=== PATIENT | male | born 1950 | race Caucasian/White ===

== ENCOUNTER 2020-06-04 11:23 | Outpatient (CLI) | payer MEDICARE, OTHER, SELFPAY ==
--- NOTE | ~2020-06-04 | US_ITS ---
EXAMINATION: US venous doppler [facility] DATE: 06/04/2020 12:17 INDICATION: Lower limb swelling. TECHNIQUE: Grayscale ultrasound images without and with compression and Doppler ultrasound images of the bilateral lower extremity veins were obtained. COMPARISON: None. FINDINGS: The visualized portions of right common femoral vein, profunda (deep) femoral vein, femoral vein, pop liteal vein, posterior tibial veins, peroneal veins, gastrocnemius vein and greater saphenous vein ou tflow are patent. 4.2 x 1.4 x 3.1 cm complex fluid collection in the deep subcutaneous tissues along the anterior right tibia which in the setting of recent trauma is most consistent with a hematoma. The visualized portions of left common femoral vein, profunda femoral vein, femoral vein, popliteal v ein, posterior tibial veins, peroneal veins, gastrocnemius vein and greater saphenous vein outflow ar e patent. IMPRESSION: 1. No deep venous thrombosis in either lower limb. 2. 4.2 x 1.4 x 3.1 cm complex subcutaneous fluid collection along the anterior right tibia, most like ly a hematoma given the history of recent trauma at this location. Reviewed, dictated and finalized at location A. IMPRESSION: 1. No deep venous thrombosis in either lower limb. 2. 4.2 x 1.4 x 3.1 cm complex subcutaneous fluid collection along the anterior right tibia, most likely a hematoma given the history of recent trauma at this location.
== END 2020-06-04 11:24 | disposition home or self-care (01) ==
PROVIDERS: PCP Family Medicine; Visit Provider Physician Assistant Medical
DX: M79.89 Other specified soft tissue disorders (principal)
CPT/HCPCS: 93970

== ENCOUNTER → 2021-06-19 11:22 | Outpatient (CLI) | payer MEDICARE, OTHER, SELFPAY ==
--- NOTE | ~2021-06-19 | XR_ITS ---
XR chest 2V DATE: 06/19/2021 12:37 INDICATION: Wheezing TECHNIQUE: PA and lateral views COMPARISON: 11/24/2017 two-view chest FINDINGS: There is bilateral hyperinflation suggesting COPD. Normal heart size. No hilar or mediastinal enlargement. No pulmonary infiltrate or consolidation, ple ural effusion or pulmonary vascular congestion or pneumothorax is detected. Osteopenia. Degenerative spurring of the thoracic spine. IMPRESSION: No active disease or significant new change since 11/24/2017 Reviewed, dictated and finalized at location B.
== END ==
DX: R06.2 Wheezing (principal)
CPT/HCPCS: 71046

== ENCOUNTER 2021-08-11 12:34 | Emergency (ER) | payer MEDICARE, OTHER, SELFPAY ==
--- NOTE | 2021-08-11 12:39 | ED.BACK ---
HPI - Back Pain/Injury General Chief Complaint: Back Pain/Injury Stated Complaint: lower back pain Source: patient, RN notes reviewed and old records reviewed Mode of arrival: ambulatory Limitations: no limitations History of Present Illness HPI Narrative: 70-year-old male presents to the [facility] with complaints of back pain for 6 months, worse over the last couple of days. Has been using a heating pad and pillows with minimal to no relief. Worse over the last couple of days. Patient does have a history of high blood pressure. Discussed with him he needs to follow-up with his primary care provider for evaluation and may be increase his blood pressure medication. Patient reports that he is compliant. Denies any loss or retention of bowel or bladder. No numbness or tingling in extremities. Walks with a normal gait. Worse with movement, changing of positions and when he is trying to sleep MD elicited complaint: back pain Related Data Home Medications Medication Instructions Recorded Confirmed albuterol sulfate 90 mcg/actuation 1 puff INHALATION Q4H PRN 09/19/19 04/29/21 aerosol inhaler fluticasone fur. 200 mcg-umeclid INHALATION 01/23/21 04/29/21 62.5 mcg-vilant 25 mcg inhalat.powder indomethacin 50 mg capsule 50 mg PO ONCE cap 01/23/21 04/29/21 [id number] INHALATION 08/11/21 [Trelegy Ellipta] Allergies Allergy/AdvReac Type Severity Reaction Status Date / Time salicylates Allergy Mild Unknown Verified 04/26/21 09:02 aspirin Allergy Unknown Unknown Verified 04/26/21 09:02 lisinopril AdvReac Mild Cough Verified 04/26/21 09:02 Review of Systems Review of Systems: All systems reviewed & are unremarkable except as noted in HPI and below Constitutional: Constitutional: Reports no additional constitutional complaints, Denies chills and Denies fever(s) Eyes: Eyes: Reports no additional eye complaints ENT: Reports system reviewed and no additional complaints, except as documented Cardiovascular: Cardiovascular: Reports no additional cardiovascular complaints Respiratory: Respiratory: Reports no additional respiratory complaints Gastrointestinal: Gastrointestinal: Reports no additional gastrointestinal complaints, Denies abdominal pain, Denies nausea and Denies vomiting Musculoskeletal: Musculoskeletal: Reports as per HPI and Reports back pain Integumentary/Breasts: Skin/Breast: Reports system reviewed and no additional complaints, except as docu Neurologic: Reports system reviewed and no additional complaints, except as documented Psychiatric: Psychiatric: Reports no additional psychiatric complaints Allergic/Immunologic: Allergic/Immunologic: Reports no additional allergic/immunologic complaints PMFSH Past Medical History Medical History (Updated 08/11/21 @ 18:57 by Waleska Swain) Chronic obstructive pulmonary disease Essential hypertension Hyperlipidemia Unspecified asthma with (acute) exacerbation Surgical History Surgical History (Updated 08/11/21 @ 18:58 by Waleska Swain) No significant past surgical history Family History Family History Father Family history of heart disease in male family member before age 55 Sibling Family history of heart disease in male family member before age 55 Social History Social History Smoking status: Former smoker Alcohol intake: never Substance use: never Substance use type: does not use Comments At the time of my signature, I reviewed and agree with the nursing past medical, surgical, social, and family history. There is no relevant family history pertinent to the patient complaint. Exam Const: General: healthy appearing, no acute distress and alert Nutritional Appearance: well nourished Orientation/consciousness: patient oriented x3 Limitations: no limitations HENMT: Head: normal to inspection Ears: external ears
[2021-08-11 12:50] VITALS: BP 175/73; PULSE 70; RESP 18; TEMP 36.1; O2SAT 98
== END 2021-08-11 12:59 | disposition home or self-care (01) ==
PROVIDERS: Emergency Provider Nurse Practitioner; PCP Family Medicine
DX: M54.50 Low back pain, unspecified (principal); J44.9 Chronic obstructive pulmonary disease, unspecified; I10 Essential (primary) hypertension; E78.5 Hyperlipidemia, unspecified
CPT/HCPCS: 99213; G0463

== ENCOUNTER 2021-08-14 09:09 | Emergency (ER) | payer MEDICARE, OTHER, SELFPAY ==
--- NOTE | ~2021-08-14 | CT_ITS ---
EXAMINATION: CT lumbar spine wo con DATE: 08/14/2021 09:41 INDICATION: Right-sided low back pain. TECHNIQUE: Computed tomography (CT) of the lumbar spine was performed without intravenous contrast. A utomated exposure control and iterative reconstruction technique were employed. The dose-length produ ct was 760.37 mGy-cm. COMPARISON: CT abdomen and pelvis 11/23/2012 FINDINGS: Partially visualized are cysts in the kidneys measuring up to 6.1 cm on the right. There is 4 degrees levocurvature of lumbar spine. There is 3 mm retrolisthesis of L3 on L4. Vertebral body he ights are normal. There is mildly decreased disc height at L1-L2, moderately decreased disc height at L2-L3 and L3-L4, mildly decreased disc height at L4-L5, and severely decreased disc height at L5-S1 with endplate remodeling. There is a benign bone island in left ilium. The following disc levels are specifically discussed: L1-L2: The disc is bulging. There is mild bilateral facet joint osteoarthritis. There is mild right n eural foraminal stenosis. There is mild central canal stenosis. L2-L3: The disc is bulging. There is severe right and moderate left facet joint osteoarthritis. There is mild bilateral neural foraminal stenosis. There is mild central canal stenosis. L3-L4: The disc is bulging. There is mild bilateral facet joint osteoarthritis. There is moderate raudel ateral neural foraminal stenosis. There is mild central canal stenosis. L4-L5: The disc is bulging. There is mild bilateral facet joint osteoarthritis. There is moderate raudel ateral neural foraminal stenosis. There is mild central canal stenosis. L5-S1: The disc is bulging. There is moderate right and severe left facet joint osteoarthritis. There is moderate bilateral neural foraminal stenosis. There is mild central canal stenosis. IMPRESSION: 1. Severe lumbar spondylosis. Reviewed, dictated and finalized at location B. [employer]
[2021-08-14 09:19] VITALS: BP 170/80; PULSE 78; RESP 18; TEMP 36.6; O2SAT 98
--- NOTE | 2021-08-14 10:17 | ED.BACK ---
HPI - Back Pain/Injury General Chief Complaint: Back Pain/Injury Stated Complaint: back pain Time Seen by Provider: 08/14/21 09:18 Source: RN notes reviewed History of Present Illness HPI Narrative: Patient presents emergency department from home for right lower back pain. Patient states that for the past 8 months he has been having pain in his right lower back the pain radiates from his buttocks down into his right leg and is worse with movement and activity he states that he had been at the urgent care recently started on baclofen and a Medrol Dosepak which he is taking he states this morning an episode where the pain rating to his groin into his right testicle which was new for him he states that pain has resolved at this time he denies any fevers or chills abdominal pain nausea or vomiting numbness or tingling in the extremities bowel or bladder incontinence or any other symptoms states he is followed by Dr. Lindsey Related Data Home Medications Medication Instructions Recorded Confirmed albuterol sulfate 90 mcg/actuation 1 puff INHALATION Q4H PRN 09/19/19 04/29/21 aerosol inhaler fluticasone fur. 200 mcg-umeclid INHALATION 01/23/21 04/29/21 62.5 mcg-vilant 25 mcg inhalat.powder indomethacin 50 mg capsule 50 mg PO ONCE cap 01/23/21 04/29/21 [id number] INHALATION 08/11/21 [Trelegy Ellipta] Allergies Allergy/AdvReac Type Severity Reaction Status Date / Time aspirin Allergy Intermediate Swelling Verified 08/14/21 09:26 salicylates Allergy Intermediate Swelling Verified 08/14/21 09:26 lisinopril AdvReac Mild Cough Verified 04/26/21 09:02 Review of Systems Review of Systems: Gen.: Denies fevers or chills ENT: Denies congestion Respiratory: Denies shortness of breath or cough CV: Denies chest pain or palpitations GI: Denies abdominal pain nausea, emesis or diarrhea denies burning, urgency, frequency or hematuria Musculoskeletal: See HPI Neuro: Denies numbness, tingling, weakness or focal weakness Skin: Denies rash Except as documented, all other systems reviewed and negative PMFSH Past Medical History Medical History Chronic obstructive pulmonary disease Essential hypertension Hyperlipidemia Unspecified asthma with (acute) exacerbation Surgical History Surgical History (Updated 08/11/21 @ 18:58 by Waleska Swain) No significant past surgical history Family History Family History Father Family history of heart disease in male family member before age 55 Sibling Family history of heart disease in male family member before age 55 Social History Social History Smoking status: Former smoker Alcohol intake: never Substance use: never Substance use type: does not use Exam Narrative: APPEARANCE: No acute distress, nontoxic, resting in bed Eyes: EOMI HEENT: Normocephalic, atraumatic, CV: Regular rate and rhythm without murmur RESPIRATORY: No respiratory distress. Clear to auscultation bilaterally. Abdomen: Soft and nontender, no rebound or guarding : Normal external exam no scrotal swelling or erythema bilateral testicles are nontender to palpation no hernias palpated MUSCULOSKELETAl: Moves all extremities, no clubbing cyanosis or edema Back: No midline lumbar tenderness to palpation or step-off, tender to palpation over right piriformis region NEURO: Awake and alert. Following commands, speech normal, no focal deficits, muscle strength 5 out of 5 bilateral lower extremities, bilateral patellar reflex 2+ SKIN:: Warm, dry. Normal Color no rash or lesions Course Course Emergency Course: Discussed with Fausto for Dr. Marrero presentation work-up agrees with plan for discharge to follow-up as an outpatient Discussed with patient results of workup and diagnosis. Discussed need for follow-up with primary care, p
[2021-08-14 10:36] VITALS: BP 142/63; PULSE 68; RESP 18; O2SAT 96
== END 2021-08-14 10:38 | disposition home or self-care (01) ==
PROVIDERS: Emergency Provider Emergency Medicine; PCP Family Medicine
DX: M54.41 Lumbago with sciatica, right side (principal); J44.9 Chronic obstructive pulmonary disease, unspecified; I10 Essential (primary) hypertension; E78.5 Hyperlipidemia, unspecified; Z87.891 Personal history of nicotine dependence; M47.816 Spondylosis without myelopathy or radiculopathy, lumbar region
CPT/HCPCS: 72131; 99284

== ENCOUNTER → 2022-01-30 09:07 | Outpatient (CLI) | payer MEDICARE, OTHER, SELFPAY ==
--- NOTE | ~2022-01-30 | XR_ITS ---
XR chest 2V DATE: 01/30/2022 09:19 INDICATION: Severe persistent asthma TECHNIQUE: 2 views COMPARISON: 06/19/2021 PA and lateral chest 12/21/2014 PA and lateral chest FINDINGS: Moderate bilateral hyperinflation with relative flattening of the diaphragm is again noted. 11 mm nodular density overlies the lateral left lower lung on PA view. CT thorax is recommended to ex clude pulmonary mass lesion. No pleural effusion or pulmonary vascular congestion or pneumothorax. Central pulmonary arteries appe ar prominent, suggesting possible pulmonary hypertension. Heart size is within normal limits. Is aortic arch calcification. Mild levoscoliosis of the upper thoracic spine. Mild degenerative spurring of the thoracic spine. No pulmonary infiltrate or consolidation, pleural effusion or pulmonary vascular congestion or pneumotho rax is detected. IMPRESSION: Bilateral hyperinflation consistent with obstructive airways disease. Possible pulmonary hypertension 11 mm nodular density overlying left lower lateral lung on PA view; CT thorax is recommended Reviewed, dictated and finalized at location B. IMPRESSION: Bilateral hyperinflation consistent with obstructive airways diseas e. Possible pulmonary hypertension 11 mm nodular density overlying left lower lateral lung on PA view; CT thorax i s recommended
== END ==
PROVIDERS: PCP Family Medicine; Visit Provider Nurse Practitioner Family
DX: J45.50 Severe persistent asthma, uncomplicated (principal); R91.8 Other nonspecific abnormal finding of lung field
CPT/HCPCS: 71046

== ENCOUNTER 2023-11-24 12:19 | Inpatient (IN) | payer MEDICARE, OTHER, SELFPAY ==
[2023-11-24] VITALS (7 sets, daily range): BP systolic 132–151; BP diastolic 59–76; PULSE 88–112; RESP 18–20; TEMP 37.3–37.4; O2SAT 93–100; BMI 27.2
--- NOTE | ~2023-11-24 | CT_ITS ---
EXAMINATION: CTA chest PE protocol DATE: 11/24/2023 19:19 INDICATION: cough, dyspnea TECHNIQUE: Computed tomography angiography (CTA) of the chest was performed with 100 mL Omnipaque-350 intravenous contrast timed to evaluate the pulmonary arteries. Coronal maximum intensity projection 3D-reconstructions were created by the technologist. The dose-length product (DLP) was 413.56 mGy-cm. Automated exposure control and iterative reconstruction technique were employed. COMPARISON: None. FINDINGS: Lung parenchyma and airways: Scattered areas of centrilobular nodular consolidative and groundglass o pacities, tree-in-bud opacities, and focal consolidation affecting all lobes, most prominent in the r ight upper and lower lobes. Focus of rounded atelectasis in the peripheral anterior left lower lobe. Patent airways. Pleura: Unremarkable. Thoracic inlet, axillae and chest wall: Minimal symmetric bilateral gynecomastia.. Thoracic aorta: Mild arch calcification. No dissection or aneurysm. Mediastinum: Normal. Heart and pericardium: Normal. Coronary artery calcifications: Mild. Upper abdomen: No significant finding. Bones: No acute osseous finding. Pulmonary arteries: Study quality: Adequate. No pulmonary emboli detected. IMPRESSION: No CT evidence of acute pulmonary embolus. Scattered pulmonary opacities as can be seen with atypical infection, airways disease, and aspiration . Hypersensitivity pneumonitis or ABPA considered less likely. Reviewed, dictated and finalized at location K. CORRECTIONAL IMPRESSION: No CT evidence of acute pulmonary embolus. Scattered pulmonary opacities as can be seen with atypical infection, airways d isease, and aspiration. Hypersensitivity pneumonitis or ABPA considered less demetra khan.
--- NOTE | ~2023-11-24 | XR_ITS ---
EXAMINATION: XR chest 2V DATE: 11/24/2023 12:54 INDICATION: Shortness of breath. Cough. TECHNIQUE: Frontal and lateral views of the chest were obtained. COMPARISON: Chest 2 views 01/30/2022 FINDINGS: There are mild airspace opacities in the mid and lower lung zones. No pleural effusion. The heart size is normal. There are surgical clips in the abdomen. IMPRESSION: 1. Mild airspace opacities in the mid and lower lung zones, consistent with atelectasis/scarring vers us pneumonia. Reviewed, dictated and finalized at location E. IC ADDRESS SYSTEM OPERATOR IMPRESSION: 1. Mild airspace opacities in the mid and lower lung zones, consistent with ate lectasis/scarring versus pneumonia.
--- NOTE | 2023-11-24 12:22 | ECG_ITS ---
Measurements Intervals [place] Rate: 106 P: 85 NM: 163 QRS: 73 QRSD: 88 T: 58 QT: 309 QTc: 411 Interpretive Statements SINUS TACHYCARDIA ABNORMAL ECG NO PREVIOUS ECG AVAILABLE FOR COMPARISON Electronically Signed On 11-24-2023 12:58:38 TAX MANAGER PUBLIC by Rosalio Rios D.O.
[2023-11-24 12:37] LABS: Basophils Percent Auto 0.2 % (0.2-1.2); Eosinophils Absolute Auto 0.1 K/mm3 (0-0.3); Eosinophils Percent Auto 0.3 % (0-4.4); Hematocrit 44.7 % (42.0-52.0); Hemoglobin 14.6 g/dL (14.0-18.0); Immature Granulocyte Absolute 0.08 K/mm3 (0.00-0.031); Immature Granulocyte Percent A 0.5 % (0-0.5); Lymphocytes Absolute Auto 2.32 K/mm3 (0.9-3.2); Lymphocytes Percent Auto 14.4 % (18.3-44.2); Mean Corpuscular HGB Conc 32.7 g/dl (32-36); Mean Corpuscular Hemoglobin 30.7 pg (26-34); Mean Corpuscular Volume 94.1 fl (80-100); Mean Platelet Volume 8.6 fl (7.4-10.4); Monocytes Absolute Auto 2.3 K/mm3 (0.1-0.6); Neutrophils Absolute Auto 11.4 K/mm3 (1.3-6.7); Neutrophils Percent Auto 70.6 % (45.5-73.1); Platelet Count Result 441 k/mm3 (150-375); Red Blood Count 4.75 M/mm3 (4.6-6.20); Red Cell Distribution Width 14.1 % (11.5-14.5); White Blood Count 16.1 K/mm3 (4.5-10.0)
[2023-11-24 12:50] LABS: Alanine Aminotransferase 25 U/L (6-50); Albumin Level 3.9 g/dL (3.5-5.1); Alkaline Phosphatase 96 U/L (38-126); Anion Gap 5 mmol/L (8-16); Aspartate Amino Transferase 30 U/L (17-59); Bilirubin,Total 0.9 mg/dL (0.2-1.3); Blood Urea Nitrogen 10 mg/dL (9-20); Carbon Dioxide 30 mmol/L (22-30); Chloride 96 mmol/L (98-107); Estimated CRCL calculation 72 ml/min; Estimated Glomerular Filt Rate > 60; Glucose 94 mg/dL (65-110); Potassium 4.4 mmol/L (3.4-5.0); Sodium 131 mmol/L (137-145)
--- NOTE | 2023-11-24 17:33 | ED.SOB ---
HPI - SOB/Dyspnea General Chief Complaint: Shortness of Breath/Dyspnea <Camila Webber PA-C - Last Filed: 11/24/23 20:11> Stated Complaint: shortness of breath <Camila Webber PA-C - Last Filed: 11/24/23 20:11> Time Seen by Provider: 11/24/23 16:59 <Camila Webber PA-C - Last Filed: 11/24/23 20:11> History of Present Illness HPI Narrative: 73-year-old male with history of COPD, asthma, hypertension, hyperlipidemia presents to emergency department for cough and shortness of breath x2 months. Patient states he saw his PCP for symptoms at the onset of symptoms was started on antibiotic for presumed pneumonia. States this did not help he followed up with PCP a month later. States he was started on another round of antibiotics and a Z-Moe without improvement. States last week he saw his correctional casework specialist at [facility] who gave the patient a round of antibiotics and steroids for 10 days. Patient states he took these without improvement. He called his correctional casework specialist office today who advised to go to the ER. Pt states he has had worsening shortness of breath and a productive cough with Katarzyna green mucus with since the onset of symptoms. Rate reports intermittent subjective fevers, diaphoresis and chills. He denies chest pain, vomiting, lower extremity edema, history of heart disease. States he quit smoking about 40 years ago. <Camila Webber PA-C - Last Filed: 11/24/23 20:11> Related Data Home Medications: Home Medications Medication Instructions Recorded Confirmed albuterol sulfate 90 mcg/actuation 1 puff inhalation Q4H PRN 09/19/19 11/24/23 aerosol inhaler (Ventolin HFA) Shortness Of Breath fluticasone fur. 200 mcg-umeclid 1 inh inhalation DAILY 08/10/23 11/24/23 62.5 mcg-vilant 25 mcg inhalat.powder (Trelegy Ellipta) atorvastatin 80 mg tablet 80 mg PO DAILY 11/24/23 11/24/23 <MELVIN Braun Last Filed: 11/24/23 20:11> Allergies/Adverse Reactions: Allergies Allergy/AdvReac Type Severity Reaction Status Date / Time aspirin Allergy Intermediate Swelling Verified 11/24/23 16:31 salicylates Allergy Intermediate Swelling Verified 11/24/23 16:31 lisinopril AdvReac Mild Cough Verified 11/24/23 16:31 codeine AdvReac Vomiting Verified 11/24/23 16:32 <Camila Webber PA-C - Last Filed: 11/24/23 20:11> Review of Systems Review of Systems: CONSTITUTIONAL: See HPI EYES: Denies visual changes, redness, or discharge. ENT: Denies rhinorrhea, congestion, sore throat, or otalgia. CARDIOVASCULAR: Denies chest pain, palpitations, or edema. RESPIRATORY: See HPI GASTROINTESTINAL: Denies abdominal pain, nausea, vomiting, or diarrhea. GENITOURINARY: Denies dysuria or hematuria. SKIN: Denies rash or itching. MUSCULOSKELETAL: Denies back pain, joint pain, or myalgia. NEUROLOGIC: Denies headache, numbness, or weakness. PSYCHIATRIC: Denies anxiety or depression. <Camila Webber PA-C - Last Filed: 11/24/23 20:11> [facility] Past Medical History Medical History: Medical History BMI 27.0-27.9,adult BMI 29.0-29.9,adult Chronic obstructive pulmonary disease Essential hypertension Hyperlipidemia Overweight with body mass index (BMI) of 28 to 28.9 in adult Screening for prostate cancer Unspecified asthma with (acute) exacerbation <Camila Webber PA-C - Last Filed: 11/24/23 20:11> Surgical History Surgical History: Surgical History H/O splenectomy No significant past surgical history <Camila Webber PA-C - Last Filed: 11/24/23 20:11> Family History Family History: Family History Father Family history of heart disease in male family member before age 55 Acute myocardial infarction Sibling Family history of heart disease in male family member before age
--- NOTE | 2023-11-24 17:38 | ECG_ITS ---
Measurements Intervals [place] Rate: 103 P: 83 AL: 150 QRS: 72 QRSD: 86 T: 63 QT: 319 QTc: 418 Interpretive Statements SINUS TACHYCARDIA BASELINE WANDER- I, II, III, AVF, V2-V3 BORDERLINE ECG COMPARED TO ECG 11/24/2023 12:26:07 NO SIGNIFICANT CHANGES Electronically Signed On 11-24-2023 19:42:07 PROCUREMENT PROFESSIONAL by Rosalio Rios D.O.
[2023-11-24] MEDS: IPRATROPIUM 0.5 MG/ALBUTEROL SULFATE 2.5 MG AMPUL.NEB 3 ML INHALATION ×3 (17:54)
[2023-11-24 18:09] LABS: Appearance Urine Clear (Clear); Bacteria Urine None Seen /hpf; Bilirubin Urine Negative (Negative); Color Urine Yellow (Yellow); Glucose Urine UA Negative (Negative); Ketones Urine Negative (Negative); Leukocyte Esterase Ur Negative LEU/UL (Negative); Nitrate Urine Negative (Negative); Non Pathogenic Casts 0-2; Protein Urine Negative (Negative); Specific Grav Ur 1.016 (1.001-1.035); Squamous Epithelial Cell Urine None seen /hpf (Few); WBC Urine 0-5 /hpf; pH Urine 7.5 (5.0-9.0)
[2023-11-24 18:12] LABS: Prothrombin Time 14.1 Seconds (11.1-14.7)
[2023-11-24 18:14] LABS: Partial Thromboplastin Time 31.8 SECONDS (22.3-36.8)
[2023-11-24 18:16] LABS: NT Pro B Type Natriuretic Pept 155 pg/mL (19.9-100); Troponin I < 0.012 ng/mL (0.000-0.034)
[2023-11-24 18:22] LABS: Add Urine Microscopic? YES
[2023-11-24] MEDS: SODIUM CHLORIDE 0.9% IV 1,000 ML 999 ML IV CONT ×2 (18:36→21:00)
[2023-11-24] MEDS: methylPREDNISolone SOD SUCC 125 MG VIAL IV PUSH (18:38)
--- NOTE | 2023-11-24 19:14 | PC.NURSE ---
Assumed care of pt. Bedside report from PAULINA Keenan. Pt in radiology at this time. Family updated.
--- NOTE | 2023-11-24 19:21 | PC.NURSE ---
Bedside report given to Stephanie RN, all questions answered
[2023-11-24 19:22] LABS: Influenza A QL RT-PCR Negative (Negative); Influenza B QL RT-PCR Negative (Negative); RSV RNA, RT-PCR Positive (Negative); SARS-CoV-2 RNA PCR Negative (Negative)
--- NOTE | 2023-11-24 20:07 | PM.IMHP ---
H&P: HPI History of Present Illness Date/Time: 11/24/23 20:07 Chief Complaint: sob Narrative: This is a 73-year-old male with past medical history significant for hypertension, chronic obstructive pulmonary disease/asthma, dyslipidemia. 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 Patient tested positive for RSV, tested negative for influenza type A influenza type B and COVID. EXAMINATION: XR chest 2V DATE: 11/24/2023 12:54 INDICATION: Shortness of breath. Cough. TECHNIQUE: Frontal and lateral views of the chest were obtained. COMPARISON: Chest 2 views 01/30/2022 FINDINGS: There are mild airspace opacities in the mid and lower lung zones. No pleural effusion. The heart size is normal. There are surgical clips in the abdomen. IMPRESSION: 1. Mild airspace opacities in the mid and lower lung zones, consistent with atelectasis/scarring versus pneumonia. EXAMINATION: CTA chest PE protocol DATE: 11/24/2023 19:19 INDICATION: cough, dyspnea TECHNIQUE: Computed tomography angiography (CTA) of the chest was performed with 100 mL Omnipaque-350 intravenous contrast timed to evaluate the pulmonary arteries. Coronal maximum intensity projection 3D-reconstructions were created by the technologist. The dose-length product (DLP) was 413.56 mGy-cm. Automated exposure control and iterative reconstruction technique were employed. COMPARISON: None. ? FINDINGS:? Lung parenchyma and airways: Scattered areas of centrilobular nodular consolidative and groundglass opacities, tree-in-bud opacities, and focal consolidation affecting all lobes, most prominent in the right upper and lower lobes. Focus of rounded atelectasis in the peripheral anterior left lower lobe. Patent airways. Pleura: Unremarkable. Thoracic inlet, axillae and chest wall: Minimal symmetric bilateral gynecomastia.. Thoracic aorta: Mild arch calcification. No dissection or aneurysm. Mediastinum: Normal. Heart and pericardium: Normal. Coronary artery calcifications: Mild. Upper abdomen: No significant finding. Bones: No acute osseous finding. Pulmonary arteries: Study quality: Adequate. No pulmonary emboli detected. IMPRESSION: No CT evidence of acute pulmonary embolus. Scattered pulmonary opacities as can be seen with atypical infection, airways disease, and aspiration. Hypersensitivity pneumonitis or ABPA considered less likely. Review of Systems Review of Systems: sob, productive cough, generalized weakness x 2 weeks Constitutional: Constitutional: Reports poor appetite and Reports weakness Eyes: Eyes: Denies change in vision ENT: Denies dysphagia and Denies odynophagia Cardiovascular: Cardiovascular: Denies chest pain Respiratory: Respiratory: Reports cough, Reports excessive phlegm production, Reports dyspnea and Reports wheezing Gastrointestinal: Gastrointestinal: Denies abdominal pain, Denies dyspepsia, Denies heartburn, Denies diarrhea, Denies nausea and Denies vomiting Genitourinary: Genitourinary: Denies dysuria Musculoskeletal: Musculoskeletal: Reports muscle weakness Integumentary/Breasts: Skin/Breast: Denies rash Neurologic: Denies focal weakness and Denies Sensory deficit (Neuro) Psychiatric: Psychiatric: Reports no additional psychiatric complaints and Reports as per HPI Endocrine: Endocrine: Denies cold intolerance, Denies heat intolerance, Denies polyphagia and Denies polydipsia Hematologic/Lymphatic: Hematologic/Lymphatic: Reports no additional hematologic/lymphatic complaints and Reports as per HPI Allergic/Immunologic: Allergic/Immunologic: Reports no additional allergic/immunologic complaints and Reports a
[2023-11-24] MEDS: AZITHROMYCIN 500 MG/NS 250 ML 500 MG/250 ML BAG 250 MG IVPB (21:57)
--- NOTE | 2023-11-24 22:00 | ADMGEN ---
This patient, Edgard Gallardo, was admitted to [facility] Surg Room 312-01. Patient/family oriented to hospital policies and general routines including ID bracelet, bed and alarms, visiting hours, pain management, procedures, bathroom and other care routines, personal items, smoking policy, room service/diet, and visiting hours. Information on how to activate the Rapid Response Team has been discussed. Patient/Family are encouraged to report perceived risks to care and to ask questions if they do not understand what they are told or what they should do.
[2023-11-24] MEDS: methylPREDNISolone SOD SUCC 125 MG VIAL 40 MG IV PUSH (23:50)
[2023-11-25] VITALS (10 sets, daily range): BP systolic 137–148; BP diastolic 60–75; PULSE 72–84; RESP 16–18; TEMP 36.4–36.9; O2SAT 91–94
[2023-11-25] MEDS: methylPREDNISolone SOD SUCC 125 MG VIAL 40 MG IV PUSH ×3 (06:54→16:53)
[2023-11-25] MEDS: FLUTICASONE/UMECLIDIN/VILANTER 200-62.5-25 MCG ELLIPTA 1 PUFF INHALATION (07:53)
[2023-11-25] MEDS: IPRATROPIUM 0.5 MG/ALBUTEROL SULFATE 2.5 MG AMPUL.NEB 3 ML INHALATION ×3 (08:01→20:15)
[2023-11-25] MEDS: amLODIPine BESYLATE 5 MG TABLET PO (08:39)
--- NOTE | 2023-11-25 14:53 | PM.IMPN ---
Progress Note: A&P Assessment and Plan (1) CAP (community acquired pneumonia): Qualifiers: Laterality: unspecified laterality Qualified Code(s): J18.9 - Pneumonia, unspecified organism Code(s): J18.9 - Pneumonia, unspecified organism Status: Acute Assessment and Plan: 11/25/23: Chest CTA showing scattered pulmonary opacities as can be seen with atypical infection, airway disease, aspiration Chest x-ray showing mild airspace opacities in the mid and lower lung zones consistent with pneumonia Patient started on Rocephin and azithromycin while in the ED He was given DuoNeb and Solu-Medrol in the ED Continue Solu-Medrol and DuoNebs Continue Rocephin and azithromycin Patient currently on room air and not in any acute respiratory distress (2) RSV (acute bronchiolitis due to respiratory syncytial virus): Code(s): J21.0 - Acute bronchiolitis due to respiratory syncytial virus Status: Chronic Assessment and Plan: 11/25/23: Respiratory panel positive for RSV See above plan of care (3) COPD exacerbation: Code(s): J44.1 - Chronic obstructive pulmonary disease with (acute) exacerbation Status: Acute Assessment and Plan: 11/25/23: Currently on and will continue Ventolin HFA and Trelegy (4) Essential hypertension: Code(s): I10 - Essential (primary) hypertension Status: Chronic Assessment and Plan: 11/25/23: Continue amlodipine (5) Hyperlipidemia: Qualifiers: Hyperlipidemia type: mixed hyperlipidemia Qualified Code(s): E78.2 - Mixed hyperlipidemia Code(s): E78.5 - Hyperlipidemia, unspecified Status: Chronic Assessment and Plan: 11/25/23: Continue atorvastatin Time Spent With Patient Time with patient: 25 - 35 minutes Subjective Date/time seen: 11/25/23 14:53 Interval history: This is a 73-year-old male who presented to the hospital with chief complaint of cough and shortness of breath x2 months. He was seen urgently by sand molder who put him on antibiotic and steroids for 10 days however he did not have much improvement went to his primary care who repeated his antibiotics. Workup in the hospital included a chest CTA which showed scattered pulmonary opacities which can be seen with atypical infection, no pulmonary embolism. Chest x-ray showed mild airspace opacities of the mid and lower lung zones consistent with pneumonia. Initial labs showed a white blood cell count of 16.1, sodium 131, chloride 96, proBNP 155, troponin negative. UA was performed and shown 11-20 urine RBCs otherwise negative. Respiratory panel was also done which was positive for RSV, influenza a and B and COVID were negative. Patient was given a DuoNeb, 125 mg IV push of Solu-Medrol, IV fluids, started on Rocephin and azithromycin. On examination today patient is alert oriented x3, lying in the bed. is at the bedside. He denies any fever, chills, headache, nausea, vomiting, diarrhea, abdominal pain, chest pain. He does endorse shortness of breath especially with exertion. Review of Systems Review of Systems: All systems reviewed & are unremarkable except as noted in HPI and below Constitutional: Constitutional: Reports as per HPI and Reports no additional constitutional complaints Eyes: Eyes: Reports as per HPI and Reports no additional eye complaints ENT: Reports system reviewed and no additional complaints, except as documented and Reports as per HPI Cardiovascular: Cardiovascular: Reports as per HPI and Reports no additional cardiovascular complaints Respiratory: Respiratory: Reports as per HPI and Reports no additional respiratory complaints Gastrointestinal: Gastrointestinal: Reports as per HPI and Reports no additional gastrointestinal complaints Genitourinary: Genitourinary: Reports no additional male genitourinary complaints and Reports as per HPI Musculoskeletal: Musculoskeletal: Reports no additional musculoskeletal
[2023-11-25] MEDS: AZITHROMYCIN 500 MG/NS 250 ML 500 MG/250 ML BAG 250 MG IVPB (21:06)
[2023-11-26] VITALS (13 sets, daily range): BP systolic 126–152; BP diastolic 63–70; PULSE 77–94; RESP 14–22; TEMP 36.2–37.1; O2SAT 92–96
[2023-11-26] MEDS: methylPREDNISolone SOD SUCC 125 MG VIAL 40 MG IV PUSH ×3 (00:20→11:16)
[2023-11-26] MEDS: IPRATROPIUM 0.5 MG/ALBUTEROL SULFATE 2.5 MG AMPUL.NEB 3 ML INHALATION ×4 (02:56→20:08)
[2023-11-26] MEDS: FLUTICASONE/UMECLIDIN/VILANTER 200-62.5-25 MCG ELLIPTA 1 PUFF INHALATION (07:28)
[2023-11-26] MEDS: ATORVASTATIN 40 MG TABLET 80 MG PO (08:35)
[2023-11-26] MEDS: amLODIPine BESYLATE 5 MG TABLET PO (08:35)
--- NOTE | 2023-11-26 13:08 | P.CDI_ITS ---
CDI Query Clarification Request Documentation in the medical record indicates that this patient has been diagnosed with pneumonia and RSV (positive swab 11/21/23). Please clarify in the progress notes, if known, if there is a cause and effect relationship between pneumonia and RSV: * There is a cause and effect relationship between pneumonia and RSV. * There is not a cause and effect relationship between pneumonia and RSV. * Unknown if there is a cause and effect relationship between pneumonia and RSV. <Rebekah Lu RN - Last Filed: 11/26/23 13:18> Clarified Diagnosis Clarified Diagnosis: Unknown if there is a cause and effect relationship between pneumonia and RSV <Shannon Lopez APRN - Last Filed: 11/26/23 13:52>
[2023-11-26 13:14] LABS: Hematocrit 43.5 % (42.0-52.0); Hemoglobin 14.6 g/dL (14.0-18.0); Mean Corpuscular HGB Conc 33.6 g/dl (32-36); Mean Corpuscular Hemoglobin 31.1 pg (26-34); Mean Corpuscular Volume 92.8 fl (80-100); Mean Platelet Volume 8.7 fl (7.4-10.4); Platelet Count Result 479 k/mm3 (150-375); Red Blood Count 4.69 M/mm3 (4.6-6.20); Red Cell Distribution Width 14.2 % (11.5-14.5); White Blood Count 29.9 K/mm3 (4.5-10.0)
[2023-11-26 13:25] LABS: Alanine Aminotransferase 23 U/L (6-50); Albumin Level 3.7 g/dL (3.5-5.1); Alkaline Phosphatase 73 U/L (38-126); Anion Gap 4 mmol/L (8-16); Aspartate Amino Transferase 26 U/L (17-59); Bilirubin,Total 0.4 mg/dL (0.2-1.3); Blood Urea Nitrogen 16 mg/dL (9-20); Calcium 8.8 mg/dL (8.4-10.2); Carbon Dioxide 29 mmol/L (22-30); Chloride 102 mmol/L (98-107); Estimated CRCL calculation 81 ml/min; Estimated Glomerular Filt Rate > 60; Glucose 124 mg/dL (65-110); Potassium 4.1 mmol/L (3.4-5.0); Sodium 135 mmol/L (137-145)
[2023-11-26 13:47] LABS: Band Neutrophils Percent 7 % (0-6); Lymphocytes Absolute Manual 0.89 K/mm3 (1.1-4.5); Monocytes Absolute Manual 2.09 K/mm3 (0.1-0.90); Monocytes Percent Manual 7 % (3-9); Neutrophils Absolute Manual 26.91 K/mm3 (1.3-6.7); Neutrophils Percent Manual 83 % (46-73); Platelet Estimate Increased (Adequate); Schistocytes None Seen (NORMAL); Total Cells Counted 100
--- NOTE | 2023-11-26 13:54 | P.PNIM_ITS ---
Progress Note: A&P Assessment and Plan (1) CAP (community acquired pneumonia): Qualifiers: Laterality: unspecified laterality Qualified Code(s): J18.9 - Pneumonia, unspecified organism Code(s): J18.9 - Pneumonia, unspecified organism Status: Acute Assessment and Plan: 11/25/23: * Chest CTA showing scattered pulmonary opacities as can be seen with atypical infection, airway disease, aspiration * Chest x-ray showing mild airspace opacities in the mid and lower lung zones consistent with pneumonia * Patient started on Rocephin and azithromycin while in the ED * He was given DuoNeb and Solu-Medrol in the ED * Continue Solu-Medrol and DuoNebs * Continue Rocephin and azithromycin * Patient currently on room air and not in any acute respiratory distress 11/26/2023: * White blood cell count 29.9 up from 16.1 yesterday, bump in WBC could be related to steroid versus ineffective coverage. * Continue Rocephin and azithromycin * Will add vancomycin today, pharmacy to dose * Check for MRSA * Continue DuoNebs * decrease solu-medrol to BID (2) RSV (acute bronchiolitis due to respiratory syncytial virus): Code(s): J21.0 - Acute bronchiolitis due to respiratory syncytial virus Status: Chronic Assessment and Plan: 11/25/23: * Respiratory panel positive for RSV * See above plan of care 11/26/23: * Unknown if there is a cause and effect relationship between pneumonia and RSV * see above plan of care (3) COPD exacerbation: Code(s): J44.1 - Chronic obstructive pulmonary disease with (acute) exacerbation Status: Acute Assessment and Plan: 11/25/23: * Currently on and will continue Ventolin HFA and Trelegy 11/26/2023: * No change to treatment plan (4) Essential hypertension: Code(s): I10 - Essential (primary) hypertension Status: Chronic Assessment and Plan: 11/25/23: * Continue amlodipine 11/26/2023: * No change to current treatment plan (5) Hyperlipidemia: Qualifiers: Hyperlipidemia type: mixed hyperlipidemia Qualified Code(s): E78.2 - Mixed hyperlipidemia Code(s): E78.5 - Hyperlipidemia, unspecified Status: Chronic Assessment and Plan: 11/25/23: * Continue atorvastatin 11/26/2023: * No change to current treatment Time Spent With Patient Time with patient: 25 - 35 minutes Subjective Date/time seen: 11/26/23 13:54 Interval history: 11/25/23: This is a 73-year-old male who presented to the hospital with chief complaint of cough and shortness of breath x2 months. He was seen urgently by knurling machine operator who put him on antibiotic and steroids for 10 days however he did not have much improvement went to his primary care who repeated his antibiotics. Workup in the hospital included a chest CTA which showed scattered pulmonary opacities which can be seen with atypical infection, no pulmonary embolism. Chest x-ray showed mild airspace opacities of the mid and lower lung zones consistent with pneumonia. Initial labs showed a white blood cell count of 16.1, sodium 131, chloride 96, proBNP 155, troponin negative. UA was performed and shown 11-20 urine RBCs otherwise negative. Respiratory panel was also done which was positive for RSV, influenza a and B and COVID were negative. Patient was given a DuoNeb, 125 mg IV push of Solu-Medrol, IV fluids, started on Rocephin and azithromycin. On examination today patient is alert oriented x3, lying in the bed. is at the bedside. He denies any fever, chills, headache, nausea, vomiting, diarrhea, abdominal pain, chest pa
--- NOTE | 2023-11-26 13:54 | PM.IMPN ---
Progress Note: A&P Assessment and Plan (1) CAP (community acquired pneumonia): Qualifiers: Laterality: unspecified laterality Qualified Code(s): J18.9 - Pneumonia, unspecified organism Code(s): J18.9 - Pneumonia, unspecified organism Status: Acute Assessment and Plan: 11/25/23: Chest CTA showing scattered pulmonary opacities as can be seen with atypical infection, airway disease, aspiration Chest x-ray showing mild airspace opacities in the mid and lower lung zones consistent with pneumonia Patient started on Rocephin and azithromycin while in the ED He was given DuoNeb and Solu-Medrol in the ED Continue Solu-Medrol and DuoNebs Continue Rocephin and azithromycin Patient currently on room air and not in any acute respiratory distress 11/26/2023: White blood cell count 29.9 up from 16.1 yesterday, bump in WBC could be related to steroid versus ineffective coverage. Continue Rocephin and azithromycin Will add vancomycin today, pharmacy to dose Check for MRSA Continue DuoNebs decrease solu-medrol to BID (2) RSV (acute bronchiolitis due to respiratory syncytial virus): Code(s): J21.0 - Acute bronchiolitis due to respiratory syncytial virus Status: Chronic Assessment and Plan: 11/25/23: Respiratory panel positive for RSV See above plan of care 11/26/23: Unknown if there is a cause and effect relationship between pneumonia and RSV see above plan of care (3) COPD exacerbation: Code(s): J44.1 - Chronic obstructive pulmonary disease with (acute) exacerbation Status: Acute Assessment and Plan: 11/25/23: Currently on and will continue Ventolin HFA and Trelegy 11/26/2023: No change to treatment plan (4) Essential hypertension: Code(s): I10 - Essential (primary) hypertension Status: Chronic Assessment and Plan: 11/25/23: Continue amlodipine 11/26/2023: No change to current treatment plan (5) Hyperlipidemia: Qualifiers: Hyperlipidemia type: mixed hyperlipidemia Qualified Code(s): E78.2 - Mixed hyperlipidemia Code(s): E78.5 - Hyperlipidemia, unspecified Status: Chronic Assessment and Plan: 11/25/23: Continue atorvastatin 11/26/2023: No change to current treatment Time Spent With Patient Time with patient: 25 - 35 minutes Subjective Date/time seen: 11/26/23 13:54 Interval history: 11/25/23: This is a 73-year-old male who presented to the hospital with chief complaint of cough and shortness of breath x2 months. He was seen urgently by door to door sales representative who put him on antibiotic and steroids for 10 days however he did not have much improvement went to his primary care who repeated his antibiotics. Workup in the hospital included a chest CTA which showed scattered pulmonary opacities which can be seen with atypical infection, no pulmonary embolism. Chest x-ray showed mild airspace opacities of the mid and lower lung zones consistent with pneumonia. Initial labs showed a white blood cell count of 16.1, sodium 131, chloride 96, proBNP 155, troponin negative. UA was performed and shown 11-20 urine RBCs otherwise negative. Respiratory panel was also done which was positive for RSV, influenza a and B and COVID were negative. Patient was given a DuoNeb, 125 mg IV push of Solu-Medrol, IV fluids, started on Rocephin and azithromycin. On examination today patient is alert oriented x3, lying in the bed. is at the bedside. He denies any fever, chills, headache, nausea, vomiting, diarrhea, abdominal pain, chest pain. He does endorse shortness of breath especially with exertion. 11/26/23: Patient states he is feeling much better today. Labs today revealed a white blood cell count of 29.9 up from yesterday, sodium level 135, otherwise unremarkable. Blood cultures are showing no growth today on preliminary read. Review of Systems Review of Systems: All systems reviewed & are unremarkable except as noted in
[2023-11-26] MEDS: VANCOMYCIN 1,250 MG/NS 250 ML 1,250 MG/250 ML BAG 166.67 MG IVPB (15:22)
--- NOTE | 2023-11-26 15:36 | PC.NURSE ---
Patient educated on signs and symptoms of vancomycin including redness, flushed, and hot feelings. Patient told to call out if any of these symptoms occur. Patient understands and states I will call out if any of these symptoms occur. Will Continue to monitor.
[2023-11-26 15:49] LABS: MRSA (PCR) NOT DETECTED (NOT DETECTE)
[2023-11-26] MEDS: VANCOMYCIN 1,000 MG/NS 250 ML 1,000 MG/250 ML BAG 250 MG IVPB (16:55)
[2023-11-26] MEDS: methylPREDNISolone SOD SUCC 40 MG VIAL IV PUSH (17:03)
[2023-11-26] MEDS: AZITHROMYCIN 500 MG/NS 250 ML 500 MG/250 ML BAG 250 MG IVPB (20:51)
[2023-11-27 02:07] VITALS: PULSE 88; RESP 18
[2023-11-27] MEDS: IPRATROPIUM 0.5 MG/ALBUTEROL SULFATE 2.5 MG AMPUL.NEB 3 ML INHALATION ×2 (02:07→07:35)
[2023-11-27 02:22] VITALS: PULSE 86; RESP 18
[2023-11-27] MEDS: VANCOMYCIN 1,250 MG/NS 250 ML 1,250 MG/250 ML BAG 166.67 MG IVPB (03:35)
[2023-11-27 06:00] VITALS: BP 141/78; PULSE 88; RESP 16; TEMP 36.9; O2SAT 96
[2023-11-27 06:25] LABS: Basophils Percent Auto 0.2 % (0.2-1.2); Hematocrit 43.4 % (42.0-52.0); Hemoglobin 14.3 g/dL (14.0-18.0); Immature Granulocyte Absolute 0.21 K/mm3 (0.00-0.031); Immature Granulocyte Percent A 0.8 % (0-0.5); Lymphocytes Absolute Auto 2.61 K/mm3 (0.9-3.2); Mean Corpuscular HGB Conc 32.9 g/dl (32-36); Mean Corpuscular Volume 94.1 fl (80-100); Monocytes Absolute Auto 1.7 K/mm3 (0.1-0.6); Monocytes Percent Auto 6.4 % (2.6-8.5); Neutrophils Absolute Auto 21.5 K/mm3 (1.3-6.7); Neutrophils Percent Auto 82.6 % (45.5-73.1); Platelet Count Result 491 k/mm3 (150-375); Red Blood Count 4.61 M/mm3 (4.6-6.20); Red Cell Distribution Width 14.2 % (11.5-14.5)
[2023-11-27 06:42] LABS: Alanine Aminotransferase 24 U/L (6-50); Albumin Level 3.7 g/dL (3.5-5.1); Alkaline Phosphatase 69 U/L (38-126); Anion Gap 7 mmol/L (8-16); Aspartate Amino Transferase 24 U/L (17-59); Bilirubin,Total 0.5 mg/dL (0.2-1.3); Blood Urea Nitrogen 15 mg/dL (9-20); Calcium 8.6 mg/dL (8.4-10.2); Carbon Dioxide 28 mmol/L (22-30); Chloride 102 mmol/L (98-107); Estimated CRCL calculation 72 ml/min; Estimated Glomerular Filt Rate > 60; Glucose 104 mg/dL (65-110); Potassium 3.6 mmol/L (3.4-5.0); Sodium 137 mmol/L (137-145)
[2023-11-27] MEDS: FLUTICASONE/UMECLIDIN/VILANTER 200-62.5-25 MCG ELLIPTA 1 PUFF INHALATION (07:35)
[2023-11-27 07:37] VITALS: PULSE 80; O2SAT 94
[2023-11-27 07:42] VITALS: PULSE 83
--- NOTE | 2023-11-27 07:52 | PM.DS ---
DS: Admitting Diagnosis Discharge Date 11/27/23 Admitting Diagnosis community acquired pneumonia COPD exacerbation Essential hypertension DS: Discharge Diagnosis Discharge Diagnosis (1) CAP (community acquired pneumonia): Qualifiers: Laterality: unspecified laterality Qualified Code(s): J18.9 - Pneumonia, unspecified organism Code(s): J18.9 - Pneumonia, unspecified organism Status: Acute (2) RSV (acute bronchiolitis due to respiratory syncytial virus): Code(s): J21.0 - Acute bronchiolitis due to respiratory syncytial virus Status: Chronic (3) COPD exacerbation: Code(s): J44.1 - Chronic obstructive pulmonary disease with (acute) exacerbation Status: Acute (4) Essential hypertension: Code(s): I10 - Essential (primary) hypertension Status: Chronic (5) Hyperlipidemia: Qualifiers: Hyperlipidemia type: mixed hyperlipidemia Qualified Code(s): E78.2 - Mixed hyperlipidemia Code(s): E78.5 - Hyperlipidemia, unspecified Status: Chronic DS: Summary Hospital Course Reason for hospitalization: community acquired pneumonia COPD exacerbation Essential hypertension Hospital Course: 11/25/23: This is a 73-year-old male who presented to the hospital with chief complaint of cough and shortness of breath x2 months.? He was seen urgently by paper stripper who put him on antibiotic and steroids for 10 days however he did not have much improvement went to his primary care who repeated his antibiotics.? Workup in the hospital included a chest CTA which showed scattered pulmonary opacities which can be seen with atypical infection, no pulmonary embolism.? Chest x-ray showed mild airspace opacities of the mid and lower lung zones consistent with pneumonia.? Initial labs showed a white blood cell count of 16.1, sodium 131, chloride 96, proBNP 155, troponin negative.? UA was performed and shown 11-20 urine RBCs otherwise negative.? Respiratory panel was also done which was positive for RSV, influenza a and B and COVID were negative.? Patient was given a DuoNeb, 125 mg IV push of Solu-Medrol, IV fluids, started on Rocephin and azithromycin.? On examination today patient is alert oriented x3, lying in the bed.? is at the bedside.? He denies any fever, chills, headache, nausea, vomiting, diarrhea, abdominal pain, chest pain.? He does endorse shortness of breath especially with exertion. 11/26/23: Patient states he is feeling much better today.? Labs today revealed a white blood cell count of 29.9 up from yesterday, sodium level 135, otherwise unremarkable.? Blood cultures are showing no growth today on preliminary read. 11/27/23: VSS. He is on room air. He has remained afebrile. MRSA is negative. Vancomycin was discontinued. WBC count down to 26.0 today after cutting back on steroid. IV antibiotics changed to oral today. Patient will need to finish his antibiotics and follow up with PCP in 1 week. Patient is stable for discharge. Final diagnosis: community acquired pneumonia, COPD exacerbation Status at Discharge Cognitive/behavioral status at discharge: Alert oriented x4 Functional status at discharge: independent ambulation Overall status at discharge: patient is progressing back to baseline Time Spent with Patient Time attestation: Total time spent providing and/or coordinating discharge services: Time spent: Greater than 30 minutes Exam Narrative: General: In no acute distress, well nourished Head: atraumatic, no encephalopathy Eyes: EOMI, PERRLA, sclera clear ENT: moist mucous membranes, nasal passages clear Neck: supple, no JVD, no adenopathy, trachea midline Cardiac: Normal S1 and S2. RRR, No murmur, gallops or friction rubs, peripheral pulses intact. Respiratory:Lungs course with crackles in the bases, currently on room air, no acute respiratory distress or use of accessory muscles. Gastrointestinal: soft, non-distended, non-tender, normoactive bowel sounds. : v
[2023-11-27] MEDS: ATORVASTATIN 40 MG TABLET 80 MG PO (09:23)
[2023-11-27] MEDS: amLODIPine BESYLATE 5 MG TABLET PO (09:23)
[2023-11-27] MEDS: methylPREDNISolone SOD SUCC 40 MG VIAL IV PUSH (09:24)
== END 2023-11-27 10:45 | disposition home or self-care (01) | DRG 194 ==
LOC: ANHED 20:09 → ANH3MEDSUR 21:06
PROVIDERS: Nurse Practitioner Acute Care; Student in an Organized Health Care Education/Training Program; Admitting Provider Internal Medicine; Emergency Provider Physician Assistant; PCP Family Medicine; Visit Provider Internal Medicine
DX: J18.9 Pneumonia, unspecified organism (principal); J21.0 Acute bronchiolitis due to respiratory syncytial virus; J44.0 Chronic obstructive pulmonary disease with (acute) lower respiratory infection; J44.1 Chronic obstructive pulmonary disease with (acute) exacerbation; E78.5 Hyperlipidemia, unspecified; I10 Essential (primary) hypertension; Z20.822 Contact with and (suspected) exposure to COVID-19; Z87.891 Personal history of nicotine dependence
CPT/HCPCS: 36415; 71046; 71275; 80053; 81001; 83605; 83880; 84484; 85025; 85610; 85730; 87040; 87637; 87641; 93005; 94640; 96361; 96365; 96367; 96375; 96376; 99285; A9270; G0378; J0456; J0696; J2920; J2930; J3370; J7030; Q9967

== ENCOUNTER 2024-07-04 10:52 | Emergency (ER) | payer MEDICARE, OTHER, SELFPAY ==
--- NOTE | ~2024-07-04 | XR_ITS ---
[id number] Ordering provider: Waleska Swain APRN History: . pain, bruising, fall thursday . Comparison: None. FINDINGS: Right central line with tip overlying superior vena cava. BONES: Possible fractures seen in the right 11th rib.. Degenerative the spine. MEDIASTINUM: The cardiac silhouette is not enlarged. LUNGS: No infiltrates, effusions or pneumothorax. Emphysematous changes of the lungs. Vague opacity seen in the left lower zone most likely artifactual . OTHER: No free air under the diaphragm. IMPRESSION: 1. Highly suggestive fracture in the right 11th rib. No other definite fractures seen. 2. No acute cardiopulmonary findings. Reviewed, dictated and finalized at location A. IMPRESSION: 1. Highly suggestive fracture in the right 11th rib. No other definite fractur es seen. 2. No acute cardiopulmonary findings.
[2024-07-04 11:06] VITALS: BP 157/72; PULSE 72; RESP 18; TEMP 36.6; O2SAT 98
--- NOTE | 2024-07-04 11:07 | ED.GENADULT ---
HPI - General Adult General Chief complaint: Back Pain/Injury Stated complaint: back pain Time Seen by Provider: 07/04/24 11:16 Source: patient, RN notes reviewed and old records reviewed Mode of arrival: ambulatory Limitations: no limitations History of Present Illness HPI narrative: 73-year-old male presents to the [facility] with right rib pain posterior. Patient states that he was on a stepstool, fell backwards, hit his right side on a metal pole on Thursday, 3 days ago. Has taken Tylenol and tramadol. Onset (ago): day(s) (3) Treatments prior to arrival: other (Tylenol,tramadol) Related Data Home Medications Medication Instructions Recorded Confirmed albuterol sulfate 90 mcg/actuation 1 puff inhalation Q4H PRN 09/19/19 07/04/24 aerosol inhaler (Ventolin HFA) Shortness Of Breath Allergies Allergy/AdvReac Type Severity Reaction Status Date / Time aspirin Allergy Intermediate Swelling Verified 07/04/24 11:18 salicylates Allergy Intermediate Swelling Verified 07/04/24 11:18 lisinopril AdvReac Mild Cough Verified 07/04/24 11:18 codeine AdvReac Vomiting Verified 07/04/24 11:18 Review of Systems Review of Systems: All systems reviewed & are unremarkable except as noted in HPI and below Constitutional: Constitutional: Reports no additional constitutional complaints Eyes: Eyes: Reports no additional eye complaints ENT: Reports system reviewed and no additional complaints, except as documented Cardiovascular: Cardiovascular: Reports no additional cardiovascular complaints, Denies chest pain and Denies dyspnea Respiratory: Respiratory: Reports no additional respiratory complaints, Denies chest congestion, Denies cough and Denies dyspnea Gastrointestinal: Gastrointestinal: Reports no additional gastrointestinal complaints, Denies abdominal pain, Denies nausea and Denies vomiting Musculoskeletal: Musculoskeletal: Reports as per HPI Integumentary/Breasts: Skin/Breast: Reports system reviewed and no additional complaints, except as docu Neurologic: Reports system reviewed and no additional complaints, except as documented Psychiatric: Psychiatric: Reports no additional psychiatric complaints Allergic/Immunologic: Allergic/Immunologic: Reports no additional allergic/immunologic complaints PMFSH Past Medical History Medical History BMI 29.0-29.9,adult Chronic obstructive pulmonary disease Essential hypertension Hyperlipidemia Large B-cell lymphoma Screening for prostate cancer Unspecified asthma with (acute) exacerbation Surgical History Surgical History H/O splenectomy No significant past surgical history Family History Family History Father Family history of heart disease in male family member before age 55 Acute myocardial infarction Sibling Family history of heart disease in male family member before age 55 Heart failure Mother Heart failure Alcohol abuse Diabetes mellitus Daughter Heart failure Sibling Cancer Social History Social History Smoking status: Former smoker Tobacco type: cigarettes Second hand tobacco smoke exposure: No Alcohol intake: former Substance use: never Substance use type: does not use Do You Feel Safe in your Home?: Yes Lack of Transportation: No Lack of Food: Never True Current Housing: I Have Housing Concerned About Future Housing: No Difficulty Paying Gas/Electric Bills: No Difficulty Paying for Meds: No Currently Unemployed: No Education: High School Diploma/GED Difficulty w/ Childcare or Family Care: No Living arrangements: with family Occupation/Education: retired 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
== END 2024-07-04 12:05 | disposition home or self-care (01) ==
PROVIDERS: Emergency Provider Nurse Practitioner; PCP Family Medicine
DX: S22.31XA Fracture of one rib, right side, initial encounter for closed fracture (principal); W17.89XA Other fall from one level to another, initial encounter; J44.9 Chronic obstructive pulmonary disease, unspecified; I10 Essential (primary) hypertension; E78.5 Hyperlipidemia, unspecified; Z85.72 Personal history of non-Hodgkin lymphomas
CPT/HCPCS: 71101; 99213; G0463

== ENCOUNTER 2025-03-07 10:08 | Outpatient (CLI) | payer MEDICARE, OTHER, SELFPAY ==
--- NOTE | ~2025-03-07 | XR_ITS ---
Clinical Indication: COPD PA and lateral views of the chest: Comparison: 11/24/2023 Findings: There is COPD pattern with stable calcified density at the left lung base. No definite acut e pulmonary abnormality. Cardiomediastinal silhouette is within normal limits. Bones and soft tissue s are unremarkable. Impression: No acute abnormality. COPD. Reviewed, dictated and finalized at location . Impression: No acute abnormality. COPD.
== END 2025-03-07 10:09 | disposition home or self-care (01) ==
LOC: MICIMG 10:09
PROVIDERS: PCP Family Medicine; Visit Provider Nurse Practitioner Family
DX: J44.1 Chronic obstructive pulmonary disease with (acute) exacerbation (principal)
CPT/HCPCS: 71046

== ENCOUNTER 2025-07-17 08:07 | Outpatient (CLI) | payer MEDICARE, OTHER, SELFPAY ==
--- OUTSIDE RECORDS SUMMARY | 2023-05-01 04:30 | XMS_ITS | Continuity of Care Document ---
Author Organization [facility] Address [address] [place] [address] Phone Care Team Providers Care Crane Helper Name Role Phone Terry READ MD, Omid Unavailable Unavailable Allergies, Adverse Reactions, Alerts Substance Reaction Status Criticality codeine Other Active No Information aspirin DifficultyBreathing Active No Infor mation Medications Medication Instructions Dosage Effective Dates (start - stop) Status Comments meloxicam 15 mg tablet take 1 tablet by oral route every day for 14 days - Active Zyrtec 10 mg tablet - No Longer Active Vitamin D3 2,000 unit capsule - No Longer Active Procedures Procedure Date X-ray exam knee, 3 views Office/outpatient visit,new, mod 2022 X-ray exam knee, 3 views Global/Postop followup visit Xrays For Joint Survey, Sngl View X-ray exam stress veiw(s) Office/outpatient visit,est, mod 2018 Office/outpatient visit,est, low 2018 Fusion OA OTS X-ray exam knee, 1 or 2 views 9 Office/outpatient visit,new, mod 2018 Advance Directives Directive Yes / No Effective Date File Name No Information Encounters Encounter Description Practice Location Reason(s) For Visit Diagnoses Date Provider Providers Copied on Encounter Office/outpat ient visit,new, mod [facility], [address], [id number], tel:[phone] [facility] right knee pain (chief complaint) Presence of right artificial knee joint Terry Anne. [address] [facility] [place] [address], [place], [place], [id number] , [place]. tel:[phone] Referring Provider: Omid Fiore, [address] [place] [address], [place], [place], [address] [place] [address] . tel:[phone] [facility], [address], [id number], [place] tel:[phone] [facility] knee (chief complaint) Presence of right artificial knee joint Vladimir Curran . [address] [address], [place], [place], [id number] , [place]. tel:[phone] Referring Provider: Bina Prince, [address] [place] [address], [place], [place], [address] [place] [address] . tel:[phone] Office/outpat ient visit,est, mod [facility], [address], [id number], [place] tel:[phone] [facility] right knee pain (chief complaint) Unilateral primary osteoarthrit is, right knee Terry Anne. [address] [address], [place], [place], [id number] , [place]. tel:[phone] Referring Provider: Omid Fiore, [address] [address], [place], [place], [address] [place] [address] . tel:[phone] [facility], [address] [place] [address], [id number], [place] tel:[phone] [facility] Unilateral primary osteoarthrit is, right knee Terry Anne. [address] [place] [address], [id number] , [place]. tel:[phone] Office/outpat ient visit,est, low [facility], [address] [address], [place], [place], [id number], tel:[phone] [facility] right knee pain (chief complaint) Unilateral primary osteoarthrit is, right knee Terry Anne. [address] [facility], [address], [id number] , . [phone] Referring Provider: Omid Fiore, [address] [facility] [address] [facility], [place], [place], [address] [place] [address] . tel:[phone] [facility], [address], [id number], tel:[phone] [facility] Unilateral primary osteoarthrit is, right knee Terry Anne. [address], [id number] , [place]. tel:[phone] Office/outpat ient visit,[facility], [address] [address], [place], [place], [id number], [place] tel:[phone] [facility] right knee pain (chief complaint) Unilateral primary osteoarthrit is, right knee Terry Anne. [address] [facility], [address], [id number] , [place]. tel:[phone] Family History Family Member Type Diagnosis Age At Onset Mother Problem (finding) Heart Disease Sister Problem (finding) Cancer, unknown Brother Problem (finding) Cancer, unknown Father Problem (finding) Heart Disease Mother Problem (finding) Alcoholism Payers Payer name Insurance type Covered alliance party ID Authoriza tion(s) [place] Part B [id number] [facility] [id number] Social History Type Description Quantity Date Captured Comments Alcohol Use Details Unknown Caffeine Use Details Unknown Tobacco Use Status Current non-smoker Smoking Status Never smoker Non-Smoking Tobacco Use Details : No Details Available : No Details Available : No Details Available : No Details Available Sex Male Vital Signs Date / Time: Height Weight BMI Pulse Rate Blood Pressure Temperature Respiratory Rate Body Surface Area Head Circumference Head Circ. Percentile Wt./Rd. Percentile BMI percentile Pulse Ox Inhaled Ox 9:13 AM 71.00 in 83.915 kg (185.00 lbs) 25.8 0 kg/m eter (2) 2.05 meter(2) Chief Complaint And Reason For Visit From encounter dated '05/01/2023 09:30'. right knee pain (chief complaint). Description: Edgard Gallardo is a 72 year old male. He is now 3+ years out from a previously well functioning Walker. He presents with pain and swelling on the right side. He states that the symptoms have been acute non-traumatic and began 4 weeks ago. Edgard states that the symptoms began as the result of perhaps overuse. He notes he was mowing and doing yard work and the knee started to ache. This seemed to worsen after a trip with several hours of walking. The problem is improving. Currently the patient states that the symptoms are mild-moderate. The pain is described as aching. The symptoms occur with strenuous activity. The patient is experiencing pain inthe following location: anterior and anterior-medial on the right side. Pertinent negatives includedecreased mobility, instability, limping, locking and redness, warmth, fevers, chills, recent infections. Reason For Referral Reason For Referral No Information Plan Of Treatment Date Type Action Status Referral Ordered: X-ray exam knee, 3 views RT knee ordered Referral Ordered: X-ray exam stress veiw(s) RT knee ordered Referral Ordered: X-ray exam knee, 1 or 2 views RT knee ordered Referral Ordered: Xrays For Joint Survey, Sngl View RT knee ordered History Of Present Illness Encounter Date Complaint History Of Prese nt Illness right knee pain Edgard Gallardo is a 72 year old male. He is now 3+ years out from a previously well functioning Walker. He presents with pain and swelling on the right side. He states that the symptoms have been acute non-traumatic and began 4 weeks ago. Edgard states that the symptoms began as the result of perhaps overuse. He notes he was mowing and doing yard work and the knee started to ache. This seemed to worsen after a trip with several hours of walking. The problem is improving. Currently the patient states that the symptoms are mild-moderate. The pain is described as aching. The symptoms occur with strenuous activity. The patient is experiencing pain in the following location: anterior and anterior-medial on the right side. Pertinent negatives include decreased mobility, instability, limping, locking and redness, warmth, fevers, chills, recent infections. knee The patient retu rns 4 weeks from the above procedure. The patient has done well in the interim and notes no wound/skin problems, wound drainage, new neurological complaints, or abnormal swelling/calf pain. The patient notes they have been compliant with physical therapy and is progressing well. No other complaints noted. right knee pain Edgard Gallardo is a 68 year old male. The patient has known knee osteoarthritis and returns now in anticipation of planned knee arthroplasty. He presents with pain and decreased range of motion on the right side. He states that the symptoms have been chronic non-traumatic. The symptoms occur constantly with intermittent worsening. Currently the patient states that the symptoms are incapacitating. The pain is described as aching, sharp and shooting. The symptoms occur with activity. The patient is experiencing pain in the following location: medially based on the right side. The symptoms are aggravated by daily activities, descending stairs, exercise, movement, standing and walking. Edgard states that the symptoms are relieved by rest. In addition to right knee pain the patient is also experiencing crepitus, joint pain and night pain. Pertinent negatives include fever, radicular symptoms, numbness and weakness. Pertinent negatives include radicular symptoms, groin pain radiating to the knee. The patient has had a previous x-ray. He has had prior injections, physical therapy/home exercises, ice, OTC meds. The patient has now failed greater than 6 months of non-operative treatment, has daily pain limiting ADLs and desired activities, and is indicated for knee arthroplasty. right knee pain He presents with pain on the right side. He states that the symptoms have been chronic non-traumatic. The symptoms occur occasionally. The problem is better. Currently the patient states that the symptoms are mild. The pain is described as aching. The symptoms occur with strenuous activity. The patient has had a previous x-ray. He has had icing, OTC meds, an pelt shearer brace, hx of injection without much benefit. Patient has had arthroscopic surgery. right knee pain Mr Gallardo is a 5 0 year old male who complains of right knee pain. He presents with pain and swelling on the right side. He states that the symptoms have been chronic non-traumatic. The symptoms occur constantly with intermittent worsening. The problem is worse. Currently the patient states that the symptoms are severe. The pain is described as aching, sharp and throbbing. The symptoms occur with mild activity. The patient is experiencing pain in the following location: isolated medially on the right side. He rates his worst pain as 8/10. He rates his current pain as 5/10. The symptoms are aggravated by descending stairs, squatting, standing and walking. Edgard states that the symptoms are relieved by elevation, ice, OTC medicines and rest. In addition to right knee pain the patient is also experiencing clicking, crepitus, crunching, decreased mobility and limping. Pertinent negatives include chills, erythema, fever, instability, locking and tingling. The patient has had a previous x-ray. Prior NSAIDs include unspecified NSAIDS. He has had cortisone injection in August. He notes only short term relief from this. He has not done any post op PT guided rehab. Functional Status Date Functional Assessmen t No Information Instructions Date Instruction Additional Infor immanuel We discussed an init ial conservative course of an oral NSAID, icing, and restarting his home exercises. We discussed the need to monitor for side effects. If no improvement and/or if anything worsens we would likely start with screening labs in the form of ESR, CRP, and CBC and perhaps aspiration. He will contact me in 10-14 days to update me on his progress or sooner if there are any other issues. Questions answered, verbalized understanding and agreement. Related to Presence of right artificial knee joint The details of the p rocedure performed and imaging studies were discussed in detail with the patient. The patient will continue to be WBAT. They may progress to activities as tolerated and follow up at 3 months from surgery with repeat films if needed, or at 1, 2, 5, and 10 years with x-rays for routine joint surveillance if doing well. We discussed the role of joint prophylaxis with oral antibiotics prior to any dental or surgical procedures and to call at any time with questions, concerns, or other issues. Questions answered, verbalized understanding. Related to Presence of right artificial knee joint The patient has been medically cleared for arthroplasty. The patient has elected to proceed with unicompartmental knee arthroplasty. We discussed in detail the risks, benefits, and alternatives, the noe and post-operative restrictions, rehabilitation, expected outcomes, and possible complications including but not limited to: , DVT/PE, infection, loosening, instability, injury to nerves, blood vessels, and surrounding soft tissues, possible continued pain, possible need for future surgical intervention. We discussed possible conversion to TKA if needed. The patient expressed understanding and would like to proceed. DVT prophylaxis will be with Aspirin and home SCD's and the patient plans to go home after discharge from the hospital. We discussed surgery will be at [facility] and the anticipated length of stay would likely be 1 night. We discussed the importance of post-operative physical therapy and home exercises in the rehabilitation process. Verbalized understanding. We discussed as part of our protocol all pre-op and post-op patients on narcotics will undergo routine drug testing to monitor appropriate use of these medications during the noe and post-operative period. The patient expressed understanding and is in agreement. Related to Unilateral primary osteoarthritis, right knee He is doing well on the current regimen. He will continue to use the brace, ice, use OTC meds as needed. If symptoms worsen we discussed he would be a candidate for knee replacement, likely a medial UKA. If he continues to do well there is no reason to do this however and we will observe. I do not think a repeat injection is likely to help much given the prior failures. He also will continue his HEP for quad strengthening, which has dramatically improved. Questions answered, verbalized understanding. Related to Unilateral primary osteoarthritis, right knee He is very under-amairani abilitated and has significant quad atrophy on the right. He would benefit from formal PT to rehab his quad prior to making any decisions on UKA/TKA. He will also start an icing program, use OTC meds, and we discussed an pelt shearer brace. Given the unicompartmental nature of the patient's medial knee arthritis we discussed they would benefit from a medial pelt shearer brace. The brace will be worn daily for all desired weightbearing activities for the next several months to years (as long as it provides adequate relief). This will unload the arthritic joint compartment, relieving pain, as well as providing joint stability. This will improve the patient's function and mobility, maximize the benefit of other non-surgical treatments, and attempt to avoid or delay joint arthroplasty. The patient will be fitted for and instructed in the proper care and use of the brace. Given the patient's body habitus and measurements this can be an off the shelf brace available here in the office and we will make arrangements for this.I would like to see him back in 6-8 weeks to monitor his progress. If at that point he still has significant pain and limitation of ADLs but has improved his quad function then we would likely proceed with arthroplasty (he appears to be a good candidate for Walker medial UKA). If he has improved then we may observe. Questions answered, verbalized understanding. Related to Unilateral primary osteoarthritis, right knee Assessments Type Assessment Date assessment Presence of right artificial kne e joint impression We discussed he appe ars to have has some aggravation of the knee, perhaps some mild patellar degenerative changes. I see no concerning signs for a structural issue. Patient Care Teams Name Effective Dates (start - stop) Status Members No Information
--- NOTE | ~2025-07-17 | CT_ITS ---
EXAMINATION: CT diagnostic chest wo con DATE: 07/17/2025 09:22 INDICATION: J44.1 - Chronic obstructive pulmonary disease with (acute... TECHNIQUE: Computed tomography (CT) of the chest was performed without intravenous contrast. Additional 3D reconstructions utilizing coronal maximum intensity projection (MIP) were performed. Automated exposure control and iterative reconstruction technique were employed. The dose-length product was 27 5.06 mGy-cm. COMPARISON: 11/24/2023 FINDINGS: Mild biapical pleural-parenchymal scarring. Additional pleural parenchymal scarring and mild discoid atelectasis in the bilateral lower lungs. Small calcified nodule at the lingula and calcified left hilar lymph nodes consistent with old granulomatous disease. No pneumonia, pulmonary edema or pleural e ffusion. Heart size is normal. No pericardial effusion. Small amount of atherosclerotic coronary artery calcific location. Thoracic aorta is normal in caliber. No pathologically enlarged thoracic lymphadenopathy. 1.1 cm low- attenuation cyst in the right hepatic lobe. There are also larger cysts at the upper poles of both kidneys measuring 3.2 cm on the left and at least 3.3 cm on the right. 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 Multiple old left rib fractures. IMPRESSION: 1. Scattered mild pleural-parenchymal scarring at the periphery of both lungs with additional discoid atelectasis/scarring in the bilateral lower lungs. Reviewed, dictated and finalized at location A. IMPRESSION: 1. Scattered mild pleural-parenchymal scarring at the periphery of both lungs w ith additional discoid atelectasis/scarring in the bilateral lower lungs.
--- OUTSIDE RECORDS SUMMARY | 2025-07-17 08:17 | XMS_ITS | Encounter Summary ---
Author Organization [facility] Address [address] [place] [address] Phone Care Team Providers Care Agronomy Instructor Name Role Phone Aristeo Marrero MD Primary Care Provider + [phone] Michael Bundy MD Unavailable [phone] Jaziel Irwin RN Unavailable [phone] Little Alvarado NP Unavailable Sowmya Paige MD Unavailable [phone] Foreign Brower MD Unavailable Encounter Details Date Type Department Care Team (Late st Contact Info) Description 02/11/2018 Orders Only [facility] ProviderGinny MD [place] [address] Social History Tobacco Use Types Packs/Day Years Used Date Smoking Tobacco: Former Smokeless Tobacco: Never Alcohol Use Standard Drinks/Week Comments No 0 (1 standard drink = 0.6 oz pur e alcohol) Sex and Gender Information Value Date Recorded Sex Assigned at Not on file Legal Sex Male 3:04 AM 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 us Historical Provider LAB BLOOD ORDERABLES Sheree l Result documented in this encounter Visit Diagnoses Not on filedocumented in this encounter Additional Health Concerns Infection Onset Date Last Indicated Resolved Time COVID: Suspected 03/02/2020 03/02/2020 03/16/2020 3:06 AM CDT COVID: Suspected 09/30/2020 09/30/2020 10/01/2020 3:46 AM TUMBLER DRIER OPERATOR Respiratory Infection (RONI), contact + droplet Comment:Automatically added due to negative COVID-19 result. 10/01/2020 10/01/2020 10/15/2020 3:0 6 AM TUMBLER DRIER OPERATOR Coronavirus, droplet 04/07/2024 04/07/2024 024 3:07 AM CDT documented as of this encounter Care Teams Agronomy Instructor Relationship Specialty Start Date End Date Aristeo Marrero MD PCP - General 11/18/16 [place] [address] [facility] [address] [place] [address] Consulting Physician Pulmonary Disease 02/23/19 Jaziel Irwin, PAULINA [address] [place] [address] [address] [place] [address] [facility] Outpatient Carbide Powder Processor 08/31/19 10/23/19 Little Alvarado, KERMIT [address] [place] [address] [address] [place] [address] Nurse Practitioner Medical Oncology 11/13/20 Sowmya Paige MD [address] [facility] [address] [place] [address] Medical Oncologist/Fire Prevention Forester Medical Oncology 06/23/24 [place] [address] [place] [address] [place] [place] [address] Consulting Physician Pulmonary Disease 02/01/25 documented as of this encounter
--- OUTSIDE RECORDS SUMMARY | 2025-07-17 08:17 | XMS_ITS ---
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 History of colon polyps 03/27/2022 Overview (03/27/2022): Added automatically from request for surgery [id number] Cellulitis of forearm, left 03/02/2020 Primary osteoarthritis of right knee 01/17/2019 Synovitis of right knee 10/18/2018 Complex tear of lateral meni scus of right knee as current injury 10/18/2018 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 Past Treatment and Therapy Plans Oncology Chemotherapy Treatment Plan Name Start Date Discontinue Date Treatment Medications Discontinue Reason Plan Provider Cycles OUTPT Dose-Adjusted R-EPOCH (RiTUXimab / Etoposide / PredniSONE / VinCRIStine / Cyclophosphamide / DOXOrubicin) 21 Day Cycles - Diffuse Large B-Cell Lymphoma 02/04/20 24 04/28/2024 cycloPHOSphamide IVPB in 250 mL (vial 200 mg/mL)([id number])dexAM ETHasone (DECADRON)DOXOrubi nishi (ADRIAMYCIN), etopophos, and vinCRIStine infusionriTUXimab- abbs (TRUXIMA) IVPB in 500 mL Therapy Complete Sowmya Paige MD 4 of 4 cycles started Bendamustine / RiTUXimab 28 Day Cycles - NHL 0 02/16/2020 bendamustine (BENDEKA)bendamust ine (BENDEKA) IVPB in 50 mLriTUXimab (RITUXAN)riTUXimab (RITUXAN) IVPB in 500 mL Change in Level of Care Sowmya Paige MD 4 of 6 cycles started Radiation Treatments * Course C1_R GROIN_24 05/11/2024 - 06/02/2024 Treatment Period Energy Fraction Dose Fractions Total Dose Plans Planned RT_PELVIS 05/11/2024 - 06/02/2024 200 15 / 3,000 Reference Points Delivered PTV_RPel_3000 05/11/2024 - 06/02/2024 3,000 Lifetime Dose Tracking * Chemical Lifetime Dose Automatic Entry Manual Entr y doxorubicin 176.855 mg/m2 (368 mg) 176.855 mg/m2 (368 mg) 0 mg/m2 (0 mg) Fluoro Time 0.5 minutes 0.5 minutes 0 minutes cyclophosphamide 3,289.984 mg/m2 (6,960 mg) 3,289.984 mg/m2 (6,960 mg) 0 mg/m2 (0 mg) etoposide phosphate 888.105 mg/m2 (1,848 mg) 888.105 mg/m2 (1,848 mg) 0 mg/m2 (0 mg) doxorubicin isotoxic equivalent (Please manually verify calculation) 176.855 mg/m2 (368 mg) 176.855 mg/m2 (368 mg) 0 mg/m2 (0 mg) Air kerma at the reference point (Ka,r) 5 mGy 5 mGy 0 mGy DLP 1,514 mGycm 1,514 mGycm 0 mGycm Resolved Problems Problem Noted Date Diagnosed Date Resolved Date Complex tear of medial menis cus of right knee as current injury 08/16/2018 10/26/2019
--- OUTSIDE RECORDS SUMMARY | 2025-07-17 08:17 | XMS_ITS | Encounter Summary ---
Author Organization [facility] Healthcare Address [address] [place] [address] Care Team Providers Care Icebox Man Name Role Phone Aristeo Marrero MD Primary Care Provider + [phone] Michael Bundy MD Unavailable [phone] Little Alvarado NP Unavailable [phone] Sowmya Paige MD Unavailable [phone] Foreign Brower MD Unavailable [phone] Encounter Details Date Type Department Care Team (Late st Contact Info) Description 01/27/2025 Telephone [facility] Radiology [address] [place] [address] Chalo Garcia, RN Social History Tobacco Use Types Packs/Day Years Used Date Smoking Tobacco: Former Alcohol Use Standard Drinks/Week Comments No 0 (1 standard drink = 0.6 oz pur e alcohol) AUDIT-C Answer Date Recorded Q1: How often do you have a drink containing alc ohol? Monthly or less 03/31/2024 Average Number of Drinks Not on file 024 Frequency of Binge Drinking Not on file 03/21 PHQ-2 Answer Date Recorded PHQ-2 Score 0 11/23/2018 Personal Safety Answer Date Recorded Have you ever been in or are you currently in a harmful physical or emotional relationship or is someone making you feel afraid or unsafe? 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 Gender Identity Not on file Sexual Orientation Not on file documented as of this encounter Plan of Treatment Not on file documented as of this encounter Visit Diagnoses Not on filedocumented in this encounter Care Teams Icebox Man Relationship Specialty Start Date End Date Aristeo Marrero MD PCP - General 11/18/16 [place] [address] [address] Consulting Physician Pulmonary Disease 02/23/19 [place] [address] [address] Nurse Practitioner Medical Oncology 11/13/20 Sowmya Paige MD [address] [place] [address] [address] [place] [address] Medical Oncologist/Aba Therapist Medical Oncology 06/23/24 [place] [address] [address] Consulting Physician Pulmonary Disease 02/01/25 documented as of this encounter
--- OUTSIDE RECORDS SUMMARY | 2025-07-17 08:18 | XMS_ITS | Encounter Summary ---
Author Organization [facility] Healthcare Address [address] [place] [address] Care Team Providers Care Clinical Research Coordinator Name Role Phone Aristeo Marrero MD Primary Care Provider + [phone] Michael Bundy MD Unavailable [phone] Jaziel Irwin RN Unavailable [phone] Little Alvarado NP Unavailable [phone] Sowmya Paige MD Unavailable [phone] Foreign Brower MD Unavailable Encounter Details Date Type Department Care Team (Late st Contact Info) Description 11/13/2018 [facility] Only [facility] [address] [place] [phone] Michael Bundy MD [address] [place] [address] [address] [place] [address] Social History Tobacco Use Types Packs/Day Years Used Date Smoking Tobacco: Former Smokeless Tobacco: Never Alcohol Use Standard Drinks/Week Comments No 0 (1 standard drink = 0.6 oz pur e alcohol) Sex and Gender Information Value Date Recorded Sex Assigned at Not on file Legal Sex Male 3:04 AM SERVICE COUNTER CASHIER Gender Identity Not on file Sexual Orientation Not on file documented as of this encounter Plan of Treatment Not on file documented as of this encounter Visit Diagnoses Not on filedocumented in this encounter Additional Health Concerns Infection Onset Date Last Indicated Resolved Time COVID: Suspected 03/02/2020 03/02/202003/1603/16/2020 3:06 AM CDT COVID: Suspected 09/30/2020 09/30/2020 10/01/2020 3:46 AM SERVICE COUNTER CASHIER Respiratory Infection (RONI), contact + droplet Comment:Automatically added due to negative COVID-19 result. 10/01/2020 10/01/2020 10/15/2020 3:0 6 AM SERVICE COUNTER CASHIER Coronavirus, droplet 04/07/2024 04/07/2024 024 3:07 AM CDT documented as of this encounter Care Teams Clinical Research Coordinator Relationship Specialty Start Date End Date Aristeo Marrero MD PCP - General 11/18/16 Michael Bundy MD [address] [place] [address] Consulting Physician Pulmonary Disease 02/23/19 Jaziel Irwin, PAULINA [address] [place] [address] [facility] Children Teacher Assistant 08/31/19 10/23/19 Little Alvarado NP [address] [place] [address] [address] [place] [address] Nurse Practitioner Medical Oncology 11/13/20 Sowmya Paige MD [address] [place] [address] [address] [place] [address] Medical Oncologist/Diamond Sizer And Grader Medical Oncology 06/23/24 Foreign Brower MD [address] [place] [address] Consulting Physician Pulmonary Disease 02/01/25 documented as of this encounter
--- OUTSIDE RECORDS SUMMARY | 2025-07-17 08:18 | XMS_ITS | Encounter Summary ---
Author Organization [facility] Address [address] [place] [address] Phone Care Team Providers Care Rfid Systems Engineer Name Role Phone Aristeo Marrero MD Primary Care Provider + [phone] Michael Bundy MD Unavailable [phone] Little Alvarado NP Unavailable [phone] Sowmya Paige MD Unavailable [phone] Foreign Brower MD Unavailable [phone] Encounter Details Date Type Department Care Team (Latest Contact Info) Description 04/15/2021 Orders Only [facility] Scanning, Provider Social History Tobacco Use Types Packs/Day Years Used Date Smoking Tobacco: Former Smokeless Tobacco: Never Alcohol Use Standard Drinks/Week Comments No 0 (1 standard drink = 0.6 oz pur e alcohol) PHQ-2 Answer Date Recorded PHQ-2 Score 0 11/23/2018 Sex and Gender Information Value Date Recorded Sex Assigned at Not on file Legal Sex Male 3:04 AM SUPPLY CHAIN GENERALIST Gender Identity Not on file Sexual Orientation Not on file documented as of this encounter Plan of Treatment Not on file documented as of this encounter Procedures Procedure Name Priority Date/Time Associated Diagnosis Comments SCAN - LABS 04/15/2021 documented in this encounter Results * SCAN - LABS (04/15/2021) us Provider Scanning Final Result documented in this encounter Visit Diagnoses Not on filedocumented in this encounter Additional Health Concerns Infection Onset Date Last Indicated Resolved Time Coronavirus, droplet 04/07/2024 04/07/2024 024 3:07 AM CDT documented as of this encounter Care Teams Rfid Systems Engineer Relationship Specialty Start Date End Date Aristeo Marrero MD PCP - General 11/18/16 [place] [address] [address] Consulting Physician Pulmonary Disease 02/23/19 [place] [address] [address] Nurse Practitioner Medical Oncology 11/13/20 Sowmya Paige MD [address] [place] [address] [place] [address] Medical Oncologist/Disability Examiner Medical Oncology 06/23/24 [place] [address] [address] Consulting Physician Pulmonary Disease 02/01/25 documented as of this encounter
--- OUTSIDE RECORDS SUMMARY | 2025-07-17 08:18 | XMS_ITS | Encounter Summary ---
Author Organization [facility] Healthcare Address [address] [place] [address] Care Team Providers Care Machine Operations Supervisor Name Role Phone Aristeo Marrero MD Primary Care Provider + [phone] Michael Bundy MD Unavailable Little Alvarado NP Unavailable [phone] Sowmya Paige MD Unavailable Foreign Brower MD Unavailable Encounter Details Date Type Department Care Team (Late st Contact Info) Description 10/27/2024 Telephone [facility] Advanced Medicine Radiation Oncology [address] [facility] Advanced Medicine [place], [place] [id number] Kristie Burris MD [address] [facility] [address] [place] [address] Social History Tobacco Use Types Packs/Day Years [...] on file Legal Sex Male 3:04 AM LEGAL SERVICES PROFESSIONAL Gender Identity Not on file Sexual Orientation Not on file documented as of this encounter Plan of Treatment Not on file documented as of this encounter Visit Diagnoses Not on filedocumented in this encounter Care Teams Machine Operations Supervisor Relationship Specialty Start Date End Date Aristeo Marrero MD PCP - General 11/18/16 [place] [address] [address] Consulting Physician Pulmonary Disease 02/23/19 [place] [address] [address] Nurse Practitioner Medical Oncology 11/13/20 Sowmya Paige MD [address] [facility] [address] [place] [address] Medical Oncologist/Sql Ssis Developer Medical Oncology 06/23/24 [place] [address] [address] Consulting Physician Pulmonary Disease 02/01/25 documented as of this encounter
--- OUTSIDE RECORDS SUMMARY | 2025-07-17 08:18 | XMS_ITS | Clinical Summary ---
Author Organization [facility] Address [address] [place] [address] Care Team Providers Care Nuclear Monitoring Technician Name Role Phone Aristeo Marrero MD Primary Care Provider [phone] Michael Bundy MD Unavailable Little Alvarado NP Unavailable Sowmya Paige MD Unavailable Foreign Brower MD Unavailable Allergies Active Allergy Reactions Criticality Noted Date Comments Aspirin Swelling High Codeine Nausea & Vomiting Low 11/15/2018 Penicillins Shortness of breath High 06/22/2025 Medications cholecalciferol (VITAMIN D-3) 5,000 unit capsule Take 2 capsules (10,000 Units total) by mouth daily Active atorvastatin (LIPITOR) 80 mg tablet Take 1 tablet (80 mg total) by mouth daily 08/28/20 20 Active fish oil-dha-epa 1,200-144-216 mg capsule Take 1,200 mg by mouth daily Active ascorbic acid (VITAMIN C) 1,000 mg tablet Take 1 tablet (1,000 mg total) by mouth daily Active vitamin E (AQUASOL E) 100 unit capsule Take 180 Units by mouth daily Active coenzyme Q10 100 mg capsule Take 1 capsule (100 mg total) by mouth daily Active albuterol HFA (PROVENTIL HFA,VENTOLIN HFA,PROAIR HFA) 90 mcg/actuation inhalerIndicati ons:Chronic Obstructive Pulmonary Disease Inhale 2 puffs every 4 (four) hours as needed for wheezing 1 each 3 07/01/20 23 Active amLODIPine (NORVASC) 5 mg tablet Take 1 tablet (5 mg total) by mouth daily 11/03/19 24 Active baclofen (LIORESAL) 10 mg tablet Take 1 tablet (10 mg total) by mouth 3 (three) times a day 07/04/20 24 Active montelukast (SINGULAIR) 10 mg tabletIndicatio ns: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),Reactive airway disease with acute exacerbation, unspecified asthma severity, unspecified whether persistent Take 1 tablet (10 mg total) by mouth nightly 30 tablet 11 02/02/20 25 026 Active fluticasone propion-salmete roL (AIRDUO RESPICLICK) 113-14 mcg/actuation inhaler Inhale 1 puff 2 (two) times a day 03/07/20 25 Active amoxicillin-cla vulanate (AUGMENTIN) 875-125 mg per tablet Take 1 tablet (875 mg of amoxicillin total) by mouth 2 (two) times a day 14 tablet 06/09/20 25 025 Discontinued mening vac A,C,Y,W135 dip, PF, (Menveo G-V-Y-W-135-Dip , PF,) 10-5 mcg/0.5 mL vaccineIndicati ons: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),Need for vaccination Inject 0.5 mL into the muscle as instructed once for 1 dose 0.5 mL 06/20/20 25 025 meningococcal B (BEXSERO) 50-50-50-25 mcg/0.5 mL vaccineIndicati ons:Meningococc al Vaccination Inject 0.5 mL into the muscle as instructed once for 1 dose 0.5 mL 06/20/20 25 025 Active Problems Problem Noted Date Diagnosed Date Need for vaccination 06/19/2025 Diffuse large B-cell lymphom a of lymph nodes of inguinal region 01/21/2024 History of colon polyps 03/27/2022 Overview (03/27/2022): Added automatically from request for surgery [id number] Cellulitis of forearm, left 03/02/2020 Primary osteoarthritis of right knee 01/17/2019 Synovitis of right knee 10/18/2018 Complex tear of lateral meni scus of right knee as current injury 10/18/2018 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) (Primary Dx); Need for vaccination 06/19/2025 Orders Only [facility] Medicine Oncology [address] [place] [phone] Aparna Solis RN Need for vaccination (Primary Dx) 06/13/2025 Orders Only [facility] [address] [place] [phone] Holly Smith NP Splenic Marginal Zone Lymphoma (Primary Dx) 06/09/2025 Orders Only [facility] Medicine Oncology [address] [place] [phone] Holly Smith NP 05/26/2025 Documentation [facility] [address] [place] [phone] December, [facility] Medical Records Request ([facility]) 05/15/2025 Telephone [facility] [address] [place] [phone] Holly Smith NP 05/09/2025 Telephone [facility] [address] [place] [phone] Holly Smith NP 05/08/2025 Documentation [facility] [address] [place] [phone] AltamiranoDecember, [facility] Medical Records Request 05/05/2025 4:27 PM CDT - 05/05/2025 11:59 PM CDT Hospital Encounter [facility] ([facility]) [address] [place] [id number] Discharge Disposition: Discharge to home or self care 05/05/2025 Documentation [facility] [address] [place] [phone] Tracy Pradhan RMA Appointment 05/05/2025 Documentation [facility] [address] [place] [phone] Tracy Pradhan RMA Appointment 05/05/2025 Documentation [facility] [address] [place] [phone] Tracy Pradhan RMA Appointment 05/05/2025 Documentation [facility] [address] [place] [phone] Tracy Pradhan RMA Appointment 05/03/2025 8:15 AM CDT Office Visit [facility] [address] [place] [phone] Holly Smith, KERMIT 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) (Primary Dx); Splenic Marginal Zone Lymphoma; Hypogammaglobulinem ia 05/03/2025 7:15 AM CDT Lab [facility] Medicine Oncology Lab [address] [place] [phone] 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) 05/03/2025 7:00 AM CDT Lab [facility] - Lab [facility] [address] [facility] Floor [address] [place] [address] 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) from Last 3 Months Immunizations Immunization Administration Dates Next Due Hib (PRP-OMP) 01/30/2022 Influenza, Quadrivalent, Meredith l Culture-based MDCK, Antibiotic Free, Intramuscular 06/19/2021 Influenza, Quadrivalent, Meredith l Culture-based MDCK, Preservative Free, Antibiotic Free, Intramuscular 07/01/2023,07/02/2022 Influenza, Quadrivalent, Hig h Dose, Preservative Free, Intrr 07/11/2020 Influenza, Trivalent, High D ose, Split, Preservative Free, Intramuscular 06/06/2024,07/06/2018 Influenza, Unspecified 07/22/2019 QuVIS (J&J) SARS-CoV-2 Vaccination 12/11/2020 Meningococcal B, OMV (Bexsero) 06/20/2025 Meningococcal Conjugate (Menveo) 06/20/2025 Meningococcal MCV4P (Menactra) 02/23/2019 Moderna SARS-CoV-2 Monovalen t Vaccination (12+ YRS) 06/12/2021 Pneumococcal Conjugate PCV 13 02/21/2015 Pneumococcal Polysaccharide PPV23 01/30/2022,03/2021,08/10/2018 RSV Vaccine, Pref, Recombina nt, Subunit, Adjuvanted, PF, IM (Arexvy) 05/13/2025 Tdap 02/25/2021 ZOSTER Recombinant 08/27/2023,06/25/2023 Surgical History Surgery Date Site/Laterality Comments NASAL POLYP SURGERY ABDOMINAL SURGERY SPLENECTOMY, TOTAL 09/21/2005 - 09/20/2006 KNEE ARTHROSCOPY 08/17/2018 Right PARTIAL KNEE ARTHROPLASTY US GUIDED BIOPSY LYMPH NODE SUPERFICIAL LEFT 10/19/2019 N/A COLONOSCOPY 04/14/2022 last screening 2011 US GUIDED BIOPSY LYMPH NODE SUPERFICIAL LEFT 01/08/2024 N/A PORT PLACEMENT CHEST >5 YEARS 01/29/2024 N/A PORT REMOVAL 02/01/2025 N/A Medical History Medical History Date Comments Asthma Pneumonitis Lymphoma (HCC) 2005 monitoring Meniscal injury torn right knee GERD (gastroesophageal reflux disease) Osteoarthritis of right knee Hypertension Anemia COPD (chronic obstructive pulmonary disease) Hypercholesteremia Family History Medical History Relation Name Comments No Known Problems Brother No Known Problems Daughter Coronary artery disease Father Heart attack Father at 47 Alcohol abuse Mother No Known Problems Other No Known Problems Sister No Known Problems Son Relation Name Status Comments Brother Daughter Father Mother Other Sister Son Social History Tobacco Use Types Packs/Day Years Used Date Smoking Tobacco: Former Tobacco Cessation:Counseling Given: Not Answered Alcohol Use Standard Drinks/Week Comments No 0 (1 standard drink = 0.6 oz pur e alcohol) AUDIT-C Answer Date Recorded Q1: How often do you have a drink containing alcohol? Never 02/01/2025 Q2: How many drinks containi ng alcohol do you have on a typical day when you are drinking? Patient does not drink Q3: How often do you have si x or more drinks on one occasion? Never 02/01/2025 PHQ-2 Answer Date Recorded PHQ-2 Score 0 11/23/2018 Personal Safety Answer Date Recorded Have you ever been in or are you currently in a harmful physical or emotional relationship or is someone making you feel afraid or unsafe? 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[employer] Gender Identity Not on file Sexual Orientation Not on file Obstetrics History Last Filed Vital Signs Vital Sign Reading Time Taken Comments Blood Pressure 156/78 06/20/2025 8:20 AM CDT Pulse 71 06/20/2025 8:20 AM CDT Temperature 37 C (98.6 F) 06/20/2025 8:20 AM CDT Respiratory Rate 18 06/20/2025 8:20 AM CDT Oxygen Saturation 98% 06/20/2025 8:20 AM CDT Inhaled Oxygen Concentration - - Weight 87.2 kg (192 lb 3.9 oz) 06/20/2025 8:20 A M CDT Height 178 cm (5' 10.08) 05/03/2025 8:37 AM CDT Body Mass Index 27.52 05/03/2025 8:37 AM CDT Plan of Treatment Health Maintenance Due Date Last Done Comments Depression Screening 1950 Well Visit 65+ 2013 Covid-19 Vaccine (2024-2 6 season) 2025 06/25/2023, 06/12/2021, 05/22/2021, Additional history exists Influenza Vaccine (#1) 2025 , 07/01/2023, 07/02/2022, Additional history exists Fall Risk Assessment 02/01/2026 02/01/2025, 03/31/20 24 DTaP/Tdap/Td Vaccine (2 - Td or Tdap) 02/25/2031 02/25/2021 Pneumococcal vaccine 65+ Completed 022, 02/25/2021, 08/10/2018, Additional history exists Colon Cancer Screening-CT Colonography Discontinued 04/14/2022, 05/29/2014 Colon Cancer Screening-Colonoscopy Discontinued 04/14/2022, 05/29/2014 Colon Cancer Screening-DNA Stool Discontinued 04/14/20 22, 05/29/2014 Colon Cancer Screening-FIT Discontinued 04/14/2022, Colon Cancer Screening-FOBT Discontinued 04/14/2022, 0 05/29/2014 Colon Cancer Screening-Sigmoidoscopy Discontinued 04/14/2022, 05/29/2014 Colorectal Cancer Screening Discontinued Zoster Vaccine Completed 08/27/2023, 06/25/2023 Hepatitis B Screening Completed 02/04/2024 Hepatitis C Screening Completed 02/04/2024 Abdominal Aortic Aneurysm (A AA) Screen Completed 02/01/2025, 01/01/2024, 10/16/2015, Additional history exists Medical Devices Implanted Type Area Fire Fighter Device Identifier Shelf Expiration Date Model / Serial / Lot [employer] 6191-1-010 Simplex P Radiopaque Full Dose Cement Bone Sterile - Sna - [id number] Implanted:Qty: 1 on 08/29/2019 by Omid Stewart MD at [facility] Right: Knee [employer] 08/20/2021 6191-1-01 0 / NA / [id number] [employer] [id number] Brohard Phase 3 Twin Peg Unicompartmental Partial Knee Large - Sna - [id number] Implanted:Qty: 1 on 08/29/2019 by Omid Stewart MD at [facility] Right: Knee [employer] 03/03/2029 [id number] / NA / [id number] [employer] [id number] Brohard Unicompartmental Right Medial D Tray Tibial - Sna - [id number] Implanted:Qty: 1 on 08/29/2019 by Omid Stewart MD at [facility] Right: Knee [employer] 08/06/2029 [id number] / NA / [id number] [employer] [id number] Brohard 4mm Phase 3 Unicompartmental Knee Right Meniscus Large - Sna - [id number] Implanted:Qty: 1 on 08/29/2019 by Omid Stewart MD at [facility] Right: Knee [employer] 12/03/2023 [id number] / NA / [id number] [employer] Xcela Power Port 8fr [id number] - [id number] Implanted:Qty: 1 on 01/29/2024 by Holly Olmedo MD PhD at [facility] [employer] 10/10/2028 [id number] / / [id number] Procedures Procedure Name Priority Date/Time Associated Diagnosis Comments CT BODY OUTSIDE REFERENCE Routine 05/05/2025 4:27 PM CDT IGG Routine 05/03/2025 7:10 AM CDT 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) EGFR Routine 05/03/2025 7:10 AM CDT 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) DIFFERENTIAL AUTO Routine 05/03/2025 7:1 0 AM CDT 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) CBC WITH AUTO DIFFERENTIAL Routine 05/03/2025 7:10 AM CDT 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) COMPREHENSIVE METABOLIC PANEL Routine 05/03/2025 7:10 AM CDT 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) LACTATE DEHYDROGENASE Routine 05/03/2025 7:10 AM CDT 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) CT CHEST ABDOMEN PELVIS W CONTRAST Schedule KAROLINA, Read KAROLINA (Appt Today, Awaiting Results) 02/01/2025 7:30 AM CDT 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 There will be no report generated by a [facility]iologist. Narrative [facility] - 05/05/2025 4:27 PM CDT EXAMINATION: Images For Reference Purposes Only us Sowmya Paige MD IMG CT PROCEDURES Final Re sult [facility] * eGFR (05/03/2025 7:10 AM CDT) eGFR 87 >=60 mL/min/1. 73 m2 Comment: Interpretive Data Reference Interval Normal >/= 90 mL/min/1.73m2 Mildly decreased* 60 - 89 mL/min/1.73m2 Mildly to moderately decreased 45 - 59 mL/min/1.73m2 Moderately to severely decreased 30 - 44 mL/min/1.73m2 Severely decreased 15 - 29 mL/min/1.73m2 Kidney Failure < 15 mL/min/1.73m2 *Relative to young adult level Estimated glomerular filtration rate is determined by the 2020 CKD-EPI equation recommended by the National Kidney Foundation (A Unifying Approach to GFR Estimation: Recommendations of the NKF-ASK Task Force on Reassessing the Inclusion of Race in Diagnosing Kidney Disease, JASN 2020). The CKD-EPI equation should not be used for patients with unstable renal function and has not been validated in children and those over 70. Current interpretive data was last reviewed 2021. Blood 05/03/2025 7:10 AM CDT 05/03/2025 7:26 AM CDT us Sowmya Paige MD LAB BLOOD ORDERABLES Final Result [facility] [place] [address] * (ABNORMAL) Differential, auto (05/03/2025 7:10 AM CDT) Neutrophil abs 5.47 1.50 - 6.50 K/cumm Comment:Testing performed by : [facility], [address] [place] [phone] Lymphocyte abs 2.35 0.80 - 3.30 K/cumm [facility] Comment:Testing performed by : [facility], [address] [place] [phone] Monocyte abs 1.88(H) 0.20 - 0.80 K/cumm [facility] Comment:Testing performed by : [facility], [address] [place] [phone] Eosinophil abs 0.24 0.00 - 0.50 K/cumm [facility] Comment:Testing performed by : [facility], [address] [place] [phone] Basophil abs 0.13(H) 0.00 - 0.10 K/cumm [facility] Comment:Testing performed by : [facility], [address] [place] [phone] Neutrophil pct 54.3 % [facility] Comment: Interpretive Data Percent cell count reference ranges are not reported, since discordance with absolute values may lead to misinterpretation of CBC data. Current Interpretive Data was last revised on 2017. Testing performed by: [facility], [address] [place] [phone] Lymphocyte pct 23.3 % [facility] Comment: Interpretive Data Percent cell count reference ranges are not reported, since discordance with absolute values may lead to misinterpretation of CBC data. Current Interpretive Data was last revised on 2017. Testing performed by: [facility], [address] [place] [phone] Monocyte pct 18.7 % [facility] Comment: Interpretive Data Percent cell count reference ranges are not reported, since discordance with absolute values may lead to misinterpretation of CBC data. Current Interpretive Data was last revised on 2017. Testing performed by: [facility], [address] [place] [phone] Eosinophil pct 2.4 % [facility] HERNANDE[facility] Comment: Interpretive Data Percent cell count reference ranges are not reported, since discordance with absolute values may lead to misinterpretation of CBC data. Current Interpretive Data was last revised on 2017. Testing performed by: [facility], [address] [place] [phone] Basophil pct 1.3 % [facility] HERNANDE[facility] Comment: Interpretive Data Percent cell count reference ranges are not reported, since discordance with absolute values may lead to misinterpretation of CBC data. Current Interpretive Data was last revised on 2017. Testing performed by: [facility], [address] [place] [phone] Blood 05/03/2025 7:10 AM CDT 05/03/2025 7:23 AM CDT us Sowmya Paige MD LAB BLOOD ORDERABLES Final Result [facility] HERNANDE[facility] [place] [address] * (ABNORMAL) CBC with auto differential (05/03/2025 7:10 AM CDT) WBC 10.08(H) 3.80 - 9.90 K/cumm Comment:Testing performed by : [facility], [address] [place] [address] Hgb 15.0 13.0 - 17.5 g/dL [facility] Comment:Testing performed by : [facility], [address] [place] [address] Hct 44.0 38.9 - 50.3 % [facility] Comment:Testing performed by : [facility], [address] [place] [address] Plt 324 150 - 400 K/cumm [facility] Comment:Testing performed by : [facility], [address] [place] [address] MPV 7.0 6.8 - 10.4 fL [facility] Comment:Testing performed by : [facility], [address] [place] [address] RBC 4.67 4.30 - 5.80 M/cumm [facility] Comment:Testing performed by : [facility], [address] [place] [address] MCV 94.3 81.3 - 96.4 fL [facility] Comment:Testing performed by : [facility], [address] [place] [address] MCH 32.2 27.1 - 33.3 pg [facility] Comment:Testing performed by : [facility], [address] [place] [address] MCHC 34.1 32.3 - 35.7 g/dL [facility] Comment:Testing performed by : [facility], [address] [place] [address] RDW CV 13.4 11.1 - 14.9 % [facility] Comment:Testing performed by : [facility], [address] [place] [address] NRBC abs 0.00 0.00 - 0.01 K/cumm [facility] Comment:Testing performed by : [facility], [address] [place] [phone] Blood 05/03/2025 7:10 AM CDT 05/03/2025 7:23 AM CDT Sowmya Paige MD LAB BLOOD ORDERABLES Final Result Performing Organization Address [facility] de Phone Number [facility] [place] [address] * Lactate dehydrogenase (LD) (05/03/2025 7:10 AM CDT) [facility] Lactate dehydrogenase (LDH) 159 100 - 250 Units/L Blood 05/03/2025 7:10 AM CDT 05/03/2025 7:26 AM CDT Sowmya Paige MD LAB BLOOD ORDERABLES Final Result Performing Organization Address [facility] de Phone Number [facility] [place] [address] * (ABNORMAL) IgG (05/03/2025 7:10 AM CDT) [facility] Immunoglobulin G 444(L) 700 - 1,600 mg/dL Blood 05/03/2025 7:10 AM CDT 05/04/2025 8:55 AM CDT Sowmya Paige MD LAB BLOOD ORDERABLES Final Result Performing Organization Address [facility] [place] [address] * (ABNORMAL) Comprehensive metabolic panel (05/03/2025 7:10 AM CDT) [facility] Sodium 136 135 - 145 mmol/L Potassium, pl 4.5 3.3 - 4.9 mmol/L [facility] Chloride 100 97 - 110 mmol/L [facility] CO2 28 22 - 32 mmol/L [facility] Anion gap 8 2 - 15 mmol/L [facility] BUN 9 6 - 25 mg/dL [facility] Creatinine 0.91 0.80 - 1.30 mg/dL [facility] Glucose 98 70 - 199 mg/dL [facility] Comment: Interpretive Data Fasting glucose >/= 126 mg/dl is diagnostic for diabetes. Fasting is defined as no caloric intake for at least 8 hours. Fasting glucose between 100 mg/dl to 125 mg/dl is diagnostic of prediabetes. In a patient with classic symptoms of hyperglycemia or hyperglycemic crisis, a random glucose >/= 200 mg/dl is diagnostic for diabetes. In the absence of unequivocal hyperglycemia, results should be confirmed by repeat testing. The classification and Diagnosis of Diabetes Diabetes Care 2021; 46: S19-S40. Current interpretive data was last revised 2022. Calcium 9.3 8.5 - 10.3 mg/dL [facility] Bilirubin, total 0.4 0.1 - 1.2 mg/dL [facility] Protein, pl 6.4(L) 6.5 - 8.5 g/dL [facility] Albumin 4.3 3.5 - 5.0 g/dL [facility] Alk phos 84 40 - 130 Units/L [facility] ALT 27 7 - 55 Units/L [facility] AST 27 10 - 50 Units/L [facility] Blood 05/03/2025 7:10 AM CDT 05/03/2025 7:26 AM CDT us Sowmya Paige MD LAB BLOOD ORDERABLES Final Result [facility] Department [place] [address] * CT chest abdomen pelvis with contrast (02/01/2025 7:30 AM CDT) Anatomical Region Laterality Modality Body N/A Computed Tomogra phy 02/01/2025 9:29 AM CDT Impressions 02/01/2025 9:39 AM CDT No lymphadenopathy in the chest, abdomen, or pelvis. Dictated by: Chris Heredia MD The radiology attending physician has personally reviewed this study, and had reviewed and/or edited this written report and agrees with it. Electronically signed by: Gary Merrill M.D. 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 COMPARISON: PET/CT from 03/16/2024 FINDINGS: Bibasilar atelectasis. Unchanged nodule in the peripheral left lower lobe nodule which measures 1.3 cm and is not significantly change since at least 2017. No pleural effusion, pneumothorax, or consolidation. No suspicious pulmonary nodule. No axillary, supraclavicular, or mediastinal lymphadenopathy. Multiple subcentimeter thyroid nodules. Heart size is normal without pericardial effusion. Thoracic aorta and main pulmonary artery are normal in caliber. Right internal jugular chest port catheter tip terminates in the superior cavoatrial junction. Multivessel coronary artery calcifications. Small hiatal hernia. Unchanged hypoattenuating lesion in the right hemiliver, likely a cyst. No suspicious hepatic lesion. Gallbladder is normal. Spleen surgically absent. Pancreas and right adrenal gland are normal. Left adrenal nodule measures 1.8 cm is is not significant change since 2017 and may represent a splenule or adrenal adenoma. Kidneys enhance symmetrically without hydronephrosis. Bilateral renal cysts and additional too small to characterize lesions. Urinary bladder is diffusely thick-walled likely due to chronic outlet obstruction given prostatomegaly. Colonic diverticulosis. Appendix is normal. No thickened or distended loops of small or large bowel. No free fluid or air. Abdominal aorta is normal in caliber with mild atherosclerotic calcifications. No abdominal or pelvic lymphadenopathy. Degenerative changes throughout the spine. No suspicious osseous lesion. 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 COMPARISON: PET/CT from 03/16/2024 FINDINGS: Bibasilar atelectasis. Unchanged nodule in the peripheral left lower lobe nodule which measures 1.3 cm and is not significantly change since at least 2017. No pleural effusion, pneumothorax, or consolidation. No suspicious pulmonary nodule. No axillary, supraclavicular, or mediastinal lymphadenopathy. Multiple subcentimeter thyroid nodules. Heart size is normal without pericardial effusion. Thoracic aorta and main pulmonary artery are normal in caliber. Right internal jugular chest port catheter tip terminates in the superior cavoatrial junction. Multivessel coronary artery calcifications. Small hiatal hernia. Unchanged hypoattenuating lesion in the right hemiliver, likely a cyst. No suspicious hepatic lesion. Gallbladder is normal. Spleen surgically absent. Pancreas and right adrenal gland are normal. Left adrenal nodule measures 1.8 cm is is not significant change since 2017 and may represent a splenule or adrenal adenoma. Kidneys enhance symmetrically without hydronephrosis. Bilateral renal cysts and additional too small to characterize lesions. Urinary bladder is diffusely thick-walled likely due to chronic outlet obstruction given prostatomegaly. Colonic diverticulosis. Appendix is normal. No thickened or distended loops of small or large bowel. No free fluid or air. Abdominal aorta is normal in caliber with mild atherosclerotic calcifications. No abdominal or pelvic lymphadenopathy. Degenerative changes throughout the spine. No suspicious osseous lesion. IMPRESSION: No lymphadenopathy in the chest, abdomen, or pelvis. Dictated by: Chris Heredia MD The radiology attending physician has personally reviewed this study, and had reviewed and/or edited this written report and agrees with it. Electronically signed by: Gary Merrill M.D. Holly Smith NP IMG CT PROCEDURES Fi nal Result * Hepatitis C antibody Blood (02/04/2024 10:20 AM CDT) Hep C Ab Nonreactive Nonreactive Comment:Antibodies to HCV no t detected. Does NOT exclude the possibility of recent exposure to HCV. Current interpretive data was last revised on 22 Blood 02/04/2024 10:2 0 AM CDT 02/04/2024 10:34 AM CDT us Sowmya Paige MD LAB MICROBIOLOGY - GENERAL ORDERABLES Final Result [facility] Department of Laboratories [place], [place] [id number] * COLONOSCOPY (04/14/2022 7:39 AM CDT) Anatomical Region Laterality Modality Other Narrative Procedure Note Anali Gonzalez MD - 04/14/2022 7:[address] [facility] Endoscopy [facility] Patient Name: Edgard Gallardo Procedure Date: 04/14/2022 7:39 AM Date of : 1950 Admit Type: Outpatient Age: 71 Gender: Male Note Status: Finalized Attending MD: Anali Gonzalez M.D. Procedure Date: 04/14/2022 Procedure: Colonoscopy Indications: High risk colon cancer surveillance: Personalhistory of colonic polyps, Last colonoscopy: May2014 Providers: Anali Gonzalez M.D., Dorothea Mitchell CRNA (Anesthesia Staff), Mary Vincent RN, Adri, Vocational Auto Body Instructor Referring MD: Aristeo Marrero M.D. Medicines: Monitored Anesthesia Care Complications: No immediate complications. Estimated Blood Loss: Estimated blood loss: none. Procedure: Pre-Anesthesia Assessment: - Prior to the procedure, a History and Physicalwas performed, and patient medications and allergieswere reviewed. The patient is competent. The risks and benefits of the procedure and the sedation optionsand risks were discussed with the patient. Allquestions were answered and informed consent was obtained. Patient identification and proposed procedure were verified by the physician, the nurse and the manager cosmetics in the procedure room. Mental Status Examination: alert and oriented. AirwayExamination: normal oropharyngeal airway and neck mobility. Respiratory Examination: clear to auscultation. CV Examination: normal. Prophylactic Antibiotics: The patient does not require prophylactic antibiotics. Prior Anticoagulants: The patient has taken no anticoagulant or antiplatelet agents. ASA Grade Assessment: III - A patient with severe systemic disease. After reviewing the risks and benefits,the patient was deemed in satisfactory condition to undergo the procedure. The anesthesia plan was touse monitored anesthesia care (MAC). Immediately priorto administration of medications, the patient was re-assessed for adequacy to receive sedatives. The heart rate, respiratory rate, oxygen saturations, blood pressure, adequacy of pulmonary ventilation,and response to care were monitored throughout the procedure. The physical status of the patient was re-assessed after the procedure. - The risks and benefits of the procedure and the sedation options and risks were discussed with the patient. All questions were answered and informed consent was obtained. After I obtained informed consent, the scope was passed under direct vision. Throughout theprocedure, the patient's blood pressure, pulse, and oxygen saturations were monitored continuously. The scopewas passed under direct vision. The Colonoscope was introduced through the anus and advanced to the the cecum, identified by appendiceal orifice andileocecal valve. The colonoscopy was performed without difficulty. The patient tolerated the procedurewell. The quality of the bowel preparation was adequate.The bowel preparation used was polyethylene glycol(PEG) and bisacodyl tablets via split dose instruction. Findings: Multiple small-mouthed diverticula were found in the sigmoid colon. The exam was otherwise without abnormality on direct and retroflexion views. Impression: - Diverticulosis in the sigmoid colon. - The examination was otherwise normal on directand retroflexion views. - No specimens collected. - A malignant-appearing tumor was not seen. - Colonic polyps were not seen. Recommendation: - High fiber diet. - Repeat colonoscopy is not recommended. Procedure Code(s): --- Professional --- 88556, Colonoscopy, flexible; diagnostic, including collection of specimen(s) by brushing or washing,when performed (separate procedure) Diagnosis Code(s): --- Professional --- Z86.010, Personal history of colonic polyps K57.30, Diverticulosis of large intestine without perforation or abscess without bleeding CPT copyright 2020 [employer]. All rights reserved. The codes documented in this report are preliminary and upon account manager trainee reviewmay be revised to meet current compliance requirements. Electronically signed by Anali Gonzalez M.D. Anali Gonzalez M.D. 04/14/2022 8:50:43 AM Number of Addenda: 0 Note Initiated On: 04/14/2022 7:39 AM Anali Gonzalez MD ENDOSCOPY PROCEDURES Fi nal Result from Last 3 Months or Most Recently Relevant to Health Maintenance Insurance MEDICARE [facility] Address: [facility] [address] [place] [address] [facility] MEDICARE [facility] MEDICARE [facility] MEDICARE [facility] Advance Directives For more information, please contact: [phone] * Full Code (Latest Code Status on File) Date Activated Date Inactivated Comments 01/29/2024 8:07 AM 01/30/2024 5:14 AM * Full Code Date Activated Date Inactivated Comments 08/29/2019 4:26 PM 08/30/2019 6:37 PM Care Teams Nuclear Monitoring Technician Relationship Specialty Start Date End Date Aristeo Marrero MD PCP - General 11/18/16 [place] [id number] [address] Consulting Physician Pulmonary Disease 02/23/19 [place] [id number] [address] Nurse Practitioner Medical Oncology 11/13/20 Sowmya Paige MD [address] [place] [address] [address] [place], [place] [id number] Medical Oncologist/Manager Floral Medical Oncology 06/23/24 [place] [id number] [address] Consulting Physician Pulmonary Disease 02/01/25
--- OUTSIDE RECORDS SUMMARY | 2025-07-17 08:18 | XMS_ITS | Encounter Summary ---
Author Organization [facility] Address [address] [place] [address] Phone Care Team Providers Care Control Technician Name Role Phone Aristeo Marrero MD Primary Care Provider + [phone] Michael Bundy MD Unavailable [phone] [place] NP Unavailable [phone] Sowmya Paige MD Unavailable [phone] Foreign Brower MD Unavailable [phone] Encounter Details Date Type Department Care Team (Latest Contact Info) Description 12/05/2022 Orders Only [facility] Scanning, Provider Social History Tobacco Use Types Packs/Day Years Used Date Smoking Tobacco: Former Smokeless Tobacco: Never Alcohol Use Standard Drinks/Week Comments No 0 (1 standard drink = 0.6 oz pur e alcohol) AUDIT-C Answer Date Recorded Q1: How often do you have a drink containing alc ohol? 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 Gender Identity Not on file Sexual Orientation Not on file documented as of this encounter Plan of Treatment Not on file documented as of this encounter Procedures Procedure Name Priority Date/Time Associated Diagnosis Comments SCAN - LABS 12/05/2022 documented in this encounter Results * SCAN - LABS (12/05/2022) us Provider Scanning Final Result documented in this encounter Visit Diagnoses Not on filedocumented in this encounter Additional Health Concerns Infection Onset Date Last Indicated Resolved Time Coronavirus, droplet 04/07/2024 04/07/2024 024 3:07 AM CDT documented as of this encounter Care Teams Control Technician Relationship Specialty Start Date End Date Aristeo Marrero MD PCP - General 11/18/16 [place] [id number] [address] Consulting Physician Pulmonary Disease 02/23/19 [place] [id number] [address] Nurse Practitioner Medical Oncology 11/13/20 Sowmya Paige MD [address] [place] [address] [address] [place] [address] Medical Oncologist/Make Up Operator Medical Oncology 06/23/24 [place] [address] [address] Consulting Physician Pulmonary Disease 02/01/25 documented as of this encounter
--- NOTE | 2025-07-17 14:00 | WPDPFTINT ---
PFT Procedure Performed PFT Procedure Performed Spirometry with Pre/Post Bronchodilator Plethysmography (Lung Vol) Diffusing Cap (DLCO) Flow Vol Loop PFT Interpretation This is a pulmonary function test with pre and post-bronchodilator spirometry, plethysmography and diffusing capacity. The test was performed and results interpreted in accordance with the 2019 and 2005 ATS/ERS Task Force guidelines respectively using the Global Lung Function Initiative-2012 reference equations. Patient demonstrated good effort and cooperation. Reproducibility criteria were met. The quality of the pre bronchodilator spirometry maneuver was Grade A and post bronchodilator spirometry maneuver was Grade A. Findings: Spirometry: There is decreased maximal expiratory airflow at all lung volumes with a concave expiratory flow tracing. The contour the inspiratory flow tracing is normal. The pre bronchodilator FVC is 3.88 L, 96% predicted. The pre bronchodilator FEV1 is 1.94 L, 64% predicted. The pre bronchodilator FEV1: FVC ratio is 50%. The post bronchodilator FVC is 3.84 L, representing a 1% decrease. The post bronchodilator FEV1 is 1.99 L, representing a 2% increase. The post bronchodilator FEV1: FVC ratio is 52%. Plethysmography: The total lung capacity is 6.65 L, 94% predicted. The functional residual capacity is 3.95 L, 104% predicted. The residual volume is 2.67 L, 104% predicted. Diffusing capacity: The diffusing capacity unadjusted for hemoglobin and carboxyhemoglobin is 19.5, 79% predicted. The diffusing capacity adjusted for alveolar volume is 3.65, 97% predicted. Impression: There is a moderate obstructive abnormality. There is no significant improvement after inhaling a single dose of albuterol. The lung volumes are normal. The diffusing capacity is normal. There are no prior studies for comparison
== END 2025-07-17 08:08 | disposition home or self-care (01) ==
LOC: ANHPFT 08:09
PROVIDERS: PCP Family Medicine; Visit Provider Physician Assistant
DX: J44.1 Chronic obstructive pulmonary disease with (acute) exacerbation (principal); Z87.891 Personal history of nicotine dependence; C85.10 Unspecified B-cell lymphoma, unspecified site
CPT/HCPCS: 71250; 94060; 94726; 94729